=== PATIENT | female | born 1955 | race African-American/Black ===

== ENCOUNTER 2016-09-03 11:20 | Emergency (ER) | payer BC ==
[~2016-09-03] VITALS: Ht 149.9 cm; Wt 87.0 kg
[~2016-09-03 11:20] MED LIST: ALPR0.5T PO; AMLO-145 PO; DILT-8 PO; HYD25 PO; LEVA1.2527 NEB; LEVO200T6 PO; METO-448 PO; PRED20 PO; PRED20TA PO; WARF5TAB72 PO; WARF7.5T PO
[2016-09-03 11:23] VITALS: Ht 149.9 cm; Wt 87.0 kg
[2016-09-03] MEDS ORDERED: AMO500 PO (13:19)
[2016-09-03] MEDS ORDERED: PRED20TA PO (13:19)
--- NOTE | 2016-09-03 13:21 | ERD ---
ER Documentation Chief Complaint Date/Time DATE: 09/03/16 TIME: 13:20 Chief Complaint pt bib self with c/o sore throat x 2 days HPI Patient is a 60-year-old female who presents with sore throat for the past 2 days. She states when she swallows it feels like razor blades. She is tolerating oral intake. She denies fever. Denies any nausea or vomiting. She denies cough. She is taking over the counter medications at home without any relief. Pain is 8 out of 10 and worse with swallowing. ROS All systems reviewed and are negative except as per history of present illness. Medications Home Meds Active Scripts Prednisone* (Prednisone*) 20 Mg Tab, 40 MG PO DAILY for 5 Days, TAB Prov:SPRING MIMS PA-C 09/03/16 Amoxicillin* (Amoxicillin*) 500 Mg Cap, 500 MG PO BID for 7 Days, CAP Prov:SPRING MIMS PA-C 09/03/16 Levalbuterol Hcl* (Xopenex*) 1.25 Mg/3 Ml Vial.neb, 1.25 MG NEB Q4 Y for SHORTNESS OF BREATH, #30 EA Prov:ZURDO BYRD MD 05/16/16 Prednisone* (Prednisone*) 20 Mg Tab, 40 MG PO DAILY for 4 Days, TAB Prov:ZURDO BYRD MD 05/16/16 Prednisone (Prednisone) 20 Mg Tab, 20 MG PO DAILY for 4 Days, TAB Prov:DEVAUGHN ADAMS NP 09/06/15 Levalbuterol Hcl* (Xopenex*) 1.25 Mg/3 Ml Vial.neb, 1.25 MG NEB Q4 Y for SHORTNESS OF BREATH, #30 EA Prov:DEVAUGHN ADAMS NP 09/06/15 Diltiazem Hcl (Cardozem Cd) 240 Mg Capsr, 240 MG PO DAILY, #30 CAP Prov:HERBER LEWIS MD 08/29/15 Alprazolam* (Xanax*) 0.5 Mg Tab, 0.5 MG PO TID, #12 TAB Prov:MACKENZIE WEBB MD 08/26/15 Reported Medications Amlodipine Besylate* (Amlodipine Besylate*) 5 Mg Tablet, 5 MG PO DAILY, #30 TAB 08/26/15 Warfarin Sodium* (Coumadin*) 7.5 Mg Tablet, 7.5 MG PO MONDAY & MONDAY, TAB GIVE 7.5 MG EVERY MONDAY AND MONDAY 11/01/14 Warfarin Sodium* (Coumadin*) 5 Mg Tablet, 5 MG PO DAILY EXCEPT MON&MON, TAB GIVE 5 MG MONDAY, MONDAY, MONDAY, MONDAY, AND MONDAY 11/01/14 Metoprolol Tartrate* (Lopressor*) 25 Mg Tab, 25 MG PO DAILY, TAB 11/01/14 Levothyroxine Sodium* (Levothyroxine Sodium*) 200 Mcg Tablet, 200 MCG PO AC BREAKFAST, TAB 11/01/14 Hydrochlorothiazide* (Hydrochlorothiazide*) 25 Mg Tab, 25 MG PO DAILY, TAB 11/01/14 Allergies Allergies: Coded Allergies: Pentazocine Lactate (Verified Allergy, Unknown, HALLUCINATIONS, 08/28/15) PMhx/Soc History of Surgery: Yes (CABG) Anesthesia Reaction: No Hx Neurological Disorder: No Hx Respiratory Disorders: Yes (PE (1975)) Hx Cardiac Disorders: Yes (A FIB ) Hx Psychiatric Problems: No Hx Miscellaneous Medical Probl: Yes (asthma, PE,Greenfilter) Hx Alcohol Use: Yes Hx Substance Use: No Hx Tobacco Use: No FmHx Family History: No diabetes Physical Exam Vitals Vital Signs Date Time Temp Pulse Resp B/P Pulse Ox O2 Delivery O2 Flow Rate FiO2 09/03/16 11:23 98.2 65 18 137/68 98 Physical Exam General: well developed, well nourished, alert, nontoxic, no distress Head: normocephalic, atraumatic Eyes: PERRL, normal conjunctiva Neck: Supple, nontender, no lymphadenopathy, no midline tenderness Oropharynx: Mild bilateral tonsilar erythema and edema, uvula midline, no exudates, no kissing tonsils, no drooling Respiratory: Clear to auscaultation bilaterally, speaks in full sentences, no use of accesory muscles or labored breathing, no rales, ronchi, or wheezing Cardiovascular: RRR, No murmurs Procedures/MDM 60-year-old female nondiabetic presents with pharyngitis. Her vital signs are within normal limits and she is well-appearing in no distress. Low concern for peritonsillar abscess at this time. She is discharged with amoxicillin and a short course of prednisone. Recommended this patient follow up with her primary care doctor within 48 hours or return to the emergency room for any worsening of symptoms. However this time I do believe there is suitable for outpatient management. I answered all their questions and they agreed with the plan and were discharged home. Departure Diagnosis: Primary Impression: Pharyngitis Condition: Stable Patient Instructions: Pharyngitis, Strep (Presumed) Additional Instructions: Call your primary care doctor TOMORROW for an appointment during the next 1-2 days.See the doctor sooner or return here if your condition worsens before your appointment time. SPRING MIMS PA-C Sep 03, 2016 13:21
== END 2016-09-03 14:00 | disposition home or self-care (01) ==
LOC: FTE 11:20
DX: J02.9 Acute pharyngitis, unspecified (principal); J45.909 Unspecified asthma, uncomplicated; Z79.01 Long term (current) use of anticoagulants; Z95.1 Presence of aortocoronary bypass graft
CPT/HCPCS: 99284

== ENCOUNTER 2016-09-24 10:36 | Emergency (ER) | payer BC ==
[~2016-09-24] VITALS: Ht 152.4 cm; Wt 87.8 kg
[~2016-09-24 10:36] MED LIST changes: +AMO500 PO
[2016-09-24 10:39] VITALS: Ht 152.4 cm; Wt 87.8 kg
[2016-09-24] MEDS ORDERED: NYST1000 PO (12:05)
--- NOTE | 2016-09-24 12:45 | ERD ---
ER Documentation Chief Complaint Date/Time DATE: 09/24/16 TIME: 12:41 Chief Complaint pt bib self with c/o sores inside mouth HPI This is a 60-year-old female presents to the ER stating that she has white spots on her lips and in her tongue. Patient is also complaining of sore throat which is described as razors in her throat. Patient was seen here on September 03 and states that she was given a course of antibiotics and steroids. Her primary care doctor told her to discontinue steroids however she did finish antibiotic course. Patient does take an inhaled steroid disc for asthma every day twice a day. Patient denies any chest pain or shortness of breath. She denies any fevers or chills. ROS 12 point review of systems was done, all negative except per HPI. Medications Home Meds Active Scripts Nystatin (Nystatin) 100,000 Unit/1 Ml Oral.susp, 5 ML PO QID for 7 Days, #60 ML Prov:RUPINDER BOWERS 09/24/16 Prednisone* (Prednisone*) 20 Mg Tab, 40 MG PO DAILY for 5 Days, TAB Prov:SPRING MIMS PA-C 09/03/16 Amoxicillin* (Amoxicillin*) 500 Mg Cap, 500 MG PO BID for 7 Days, CAP Prov:SPRING MIMS PA-C 09/03/16 Levalbuterol Hcl* (Xopenex*) 1.25 Mg/3 Ml Vial.neb, 1.25 MG NEB Q4 Y for SHORTNESS OF BREATH, #30 EA Prov:ZURDO BYRD MD 05/16/16 Prednisone* (Prednisone*) 20 Mg Tab, 40 MG PO DAILY for 4 Days, TAB Prov:ZURDO BYRD MD 05/16/16 Prednisone (Prednisone) 20 Mg Tab, 20 MG PO DAILY for 4 Days, TAB Prov:DEVAUGHN ADAMS NP 09/06/15 Levalbuterol Hcl* (Xopenex*) 1.25 Mg/3 Ml Vial.neb, 1.25 MG NEB Q4 Y for SHORTNESS OF BREATH, #30 EA Prov:DEVAUGHN ADAMS NP 09/06/15 Diltiazem Hcl (Cardozem Cd) 240 Mg Capsr, 240 MG PO DAILY, #30 CAP Prov:HERBER LEWIS MD 08/29/15 Alprazolam* (Xanax*) 0.5 Mg Tab, 0.5 MG PO TID, #12 TAB Prov:MACKENZIE WEBB MD 08/26/15 Reported Medications Amlodipine Besylate* (Amlodipine Besylate*) 5 Mg Tablet, 5 MG PO DAILY, #30 TAB 08/26/15 Warfarin Sodium* (Coumadin*) 7.5 Mg Tablet, 7.5 MG PO MONDAY & MONDAY, TAB GIVE 7.5 MG EVERY MONDAY AND MONDAY 11/01/14 Warfarin Sodium* (Coumadin*) 5 Mg Tablet, 5 MG PO DAILY EXCEPT MON&MON, TAB GIVE 5 MG MONDAY, MONDAY, MONDAY, MONDAY, AND MONDAY 11/01/14 Metoprolol Tartrate* (Lopressor*) 25 Mg Tab, 25 MG PO DAILY, TAB 11/01/14 Levothyroxine Sodium* (Levothyroxine Sodium*) 200 Mcg Tablet, 200 MCG PO AC BREAKFAST, TAB 11/01/14 Hydrochlorothiazide* (Hydrochlorothiazide*) 25 Mg Tab, 25 MG PO DAILY, TAB 11/01/14 Allergies Allergies: Coded Allergies: Pentazocine Lactate (Verified Allergy, Unknown, HALLUCINATIONS, 09/24/16) PMhx/Soc History of Surgery: Yes (CABG, THYROIDECTOMY 2007, HYSTERECTOMY) Anesthesia Reaction: No Hx Neurological Disorder: No Hx Respiratory Disorders: Yes (PE (1974)) Hx Cardiac Disorders: Yes (A FIB, PULMONARY HTN) Hx Psychiatric Problems: No Hx Miscellaneous Medical Probl: Yes (asthma, PE,Greenfilter) Hx Alcohol Use: Yes (SOCIALLY ) Hx Substance Use: No Hx Tobacco Use: No Smoking Status: Former smoker Physical Exam Vitals Vital Signs Date Time Temp Pulse Resp B/P Pulse Ox O2 Delivery O2 Flow Rate FiO2 09/24/16 10:39 97.8 51 20 129/72 100 Physical Exam GENERAL: The patient is well-developed, well-nourished, in no acute distress. HEENT: Atraumatic. Oral thrush in mouth, there is some vesicular lesions in the upper palate. No tonsillar exudate, no tonsillar erythema. No kissing tonsils. No uvular deviation. RESPIRATORY: Clear to auscultation bilaterally. There are no rales, wheezes or rhonchi. HEART: Regular rate and rhythm. No murmurs, clicks, rubs or gallops. NEUROLOGIC: Alert and oriented. SKIN: There is no rash. The skin is warm and dry. Procedures/MDM This is a 60-year-old female presents to the ER with sores inside of her mouth and white spots in her mouth. Patient does appear to have oral thrush. Patient does use inhaled steroids for her asthma daily twice a day. This may be the cause for thrush. Patient does not rinse her mouth after using these inhalers. I advised patient to start rinsing her mouth after using inhalers. Patient did have some vesicular lesions which may be viral in etiology. Patient will be sent home with Magic mouthwash with nystatin. Patient is afebrile and well-appearing. Suspicion for peritonsillar or retropharyngeal abscess is low. There is no uvular deviation patient does not have a muffled voice and she does not have any difficulty in breathing. Patient is to follow- up with her primary care doctor within 1-2 days or return to ER sooner if symptoms worsen. My medical decision making was shared with the patient she understands and agrees with plan. Departure Diagnosis: Primary Impression: Oral thrush Condition: Stable Patient Instructions: Oral Thrush Additional Instructions: Call your primary care doctor TOMORROW for an appointment during the next 1-2 days.See the doctor sooner or return here if your condition worsens before your appointment time. RUPINDER BOWERS Sep 24, 2016 12:45
== END 2016-09-24 12:11 | disposition home or self-care (01) ==
LOC: FTE 10:36
DX: B37.0 Candidal stomatitis (principal); J45.909 Unspecified asthma, uncomplicated; Z87.891 Personal history of nicotine dependence; Z79.01 Long term (current) use of anticoagulants; Z95.1 Presence of aortocoronary bypass graft
CPT/HCPCS: 99283

== ENCOUNTER 2017-01-04 05:27 | Emergency (ER) | payer BC ==
[~2017-01-04] VITALS: Ht 149.9 cm; Wt 86.5 kg
[~2017-01-04 05:27] MED LIST changes: +NYST1000 PO; -PRED20 PO
[2017-01-04 05:30] VITALS: Ht 149.9 cm; Wt 86.5 kg
[2017-01-04] MEDS ORDERED: SOD CHLORIDE 0.9% 500 ML IV STA (05:57)
--- NOTE | 2017-01-04 06:24 | ERA ---
ER Documentation Chief Complaint Date/Time DATE: 01/04/17 TIME: 06:23 Chief Complaint Rapid Heart Rate and HTN HPI 61-year-old woman with a history of tachydysrhythmia presents with palpitations this morning, she states her last episode was about a year ago. She states for shortness of breath last night she used albuterol pump. She denies calf or leg swelling, no cough, no fevers or chills, no complaints of chest pain. Furthermore patient did not use her diltiazem this morning, she normally uses diltiazem for tachycardia. ROS All systems reviewed and are negative except as per history of present illness. Medications Home Meds Active Scripts Diltiazem Hcl (Cardozem Cd) 240 Mg Capsr, 240 MG PO DAILY, #30 CAP Prov:HERBER LEWIS MD 08/29/15 Reported Medications Metoprolol Tartrate* (Lopressor*) 25 Mg Tab, 25 MG PO , #60 TAB 01/04/17 Metoprolol Tartrate* (Lopressor*) 25 Mg Tab, 12.5 MG PO SUN,TUE,UR,SAT, #60 TAB 01/04/17 Levothyroxine Sodium* (Levoxyl*) 100 Mcg Tablet, 100 MCG PO BEFORE BREAKFAST, # 30 TAB 01/04/17 Warfarin Sodium* (Coumadin*) 7.5 Mg Tablet, 7.5 MG PO MONDAY & MONDAY, TAB GIVE 7.5 MG EVERY MONDAY AND MONDAY 11/01/14 Warfarin Sodium* (Coumadin*) 5 Mg Tablet, 5 MG PO DAILY EXCEPT MON&MON, TAB GIVE 5 MG MONDAY, MONDAY, MONDAY, MONDAY, AND MONDAY 11/01/14 Levothyroxine Sodium* (Levothyroxine Sodium*) 200 Mcg Tablet, 200 MCG PO AC BREAKFAST, TAB 11/01/14 Hydrochlorothiazide* (Hydrochlorothiazide*) 25 Mg Tab, 25 MG PO DAILY, TAB 11/01/14 Discontinued Reported Medications Amlodipine Besylate* (Amlodipine Besylate*) 5 Mg Tablet, 5 MG PO DAILY, #30 TAB 08/26/15 Metoprolol Tartrate* (Lopressor*) 25 Mg Tab, 25 MG PO DAILY, TAB 11/01/14 Discontinued Scripts Nystatin (Nystatin) 100,000 Unit/1 Ml Oral.susp, 5 ML PO QID for 7 Days, #60 ML Prov:RUPINDER BOWERS 09/24/16 Prednisone* (Prednisone*) 20 Mg Tab, 40 MG PO DAILY for 5 Days, TAB Prov:SPRING MIMS PA-C 09/03/16 Amoxicillin* (Amoxicillin*) 500 Mg Cap, 500 MG PO BID for 7 Days, CAP Prov:SPRING MIMS PA-C 09/03/16 Levalbuterol Hcl* (Xopenex*) 1.25 Mg/3 Ml Vial.neb, 1.25 MG NEB Q4 Y for SHORTNESS OF BREATH, #30 EA Prov:ZURDO BYRD MD 05/16/16 Prednisone* (Prednisone*) 20 Mg Tab, 40 MG PO DAILY for 4 Days, TAB Prov:ZURDO BYRD MD 05/16/16 Prednisone (Prednisone) 20 Mg Tab, 20 MG PO DAILY for 4 Days, TAB Prov:DEVAUGHN ADAMS NP 09/06/15 Levalbuterol Hcl* (Xopenex*) 1.25 Mg/3 Ml Vial.neb, 1.25 MG NEB Q4 Y for SHORTNESS OF BREATH, #30 EA Prov:DEVAUGHN ADAMS NP 09/06/15 Alprazolam* (Xanax*) 0.5 Mg Tab, 0.5 MG PO TID, #12 TAB Prov:MACKENZIE WEBB MD 08/26/15 Allergies Allergies: Coded Allergies: Pentazocine Lactate (Verified Allergy, Unknown, HALLUCINATIONS, 01/04/17) PMhx/Soc Atrial flutter status post ablation, atrial tachydysrhythmia, obesity, hypertension, 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, hypercoagulable state, DVTs, inferior vena cava filter placement, total abdominal hysterectomy, obstructive sleep apnea, pulmonary hypertension, hypertension, previous pulmonary embolisms History of Surgery: Yes (CABG, THYROIDECTOMY 2007, HYSTERECTOMY) Anesthesia Reaction: No Hx Neurological Disorder: No Hx Respiratory Disorders: Yes (PE (1975)) Hx Cardiac Disorders: Yes (A FIB, PULMONARY HTN) Hx Psychiatric Problems: No Hx Miscellaneous Medical Probl: Yes (asthma, PE,Greenfilter) Hx Alcohol Use: Yes (SOCIALLY ) Hx Substance Use: No Hx Tobacco Use: No FmHx Family History: No diabetes Physical Exam Vitals Vital Signs Date Time Temp Pulse Resp B/P Pulse Ox O2 Delivery O2 Flow Rate FiO2 01/04/17 07:56 98.6 66 18 119/56 100 Room Air 01/04/17 06:55 Nasal Cannula 2 01/04/17 05:30 97.8 120 24 173/101 98 Physical Exam GENERAL: Well-developed, well-nourished, well-hydrated, in no apparent distress , looks nontoxic in appearance HEENT: Moist mucous membranes, pink conjunctiva, no cervical spine tenderness or step-off deformities, no goiter, no jaundice or icterus, extraocular movements intact without pain. No submandibular induration, and no pharyngeal erythema NEURO: Alert and oriented 3, cranial nerves II through XII intact bilaterally, pupils equal round reactive to light, no focal deficits or facial asymmetry, sensation intact distally Strength 5/5 in upper and lower extremities bilaterally CARDIAC: Regular rate and rhythm, no murmurs rubs or gallops LUNGS: Clear bilaterally no wheezing crackles or stridor ABDOMEN: Soft nontender, no guarding, no rigidity, no rebound, no psoas sign no obturator sign. Normoactive bowel sounds SKIN: Warm and dry to touch, no abrasions, contusions, or hematomas, no lacerations, no ecchymosis, no target lesions, and without ulcers EXTREMITIES: No clubbing cyanosis or edema, calves are bilaterally symmetrical, no Homans sign, no popliteal cord sign. Distal pulses equal and bilateral PSYCH: Normal affect without agitation or irritability Result Diagram: 01/04/17 0618 01/04/17 0618 Results 24 hrs Laboratory Tests Test 01/04/17 06:18 White Blood Count 12.110^3/ul Red Blood Count 5.1910^6/ul Hemoglobin 14.1g/dl Hematocrit 44.8% Mean Corpuscular Volume 86.3fl Mean Corpuscular Hemoglobin 27.2pg Mean Corpuscular Hemoglobin Concent 31.5g/dl Red Cell Distribution Width 17.4% Platelet Count 78179^3/UL Mean Platelet Volume 10.3fl Neutrophils % 70.0% Lymphocytes % 18.4% Monocytes % 10.6% Eosinophils % 0.2% Basophils % 0.2% Nucleated Red Blood Cells % 0.0/100WBC Neutrophils # 8.510^3/ul Lymphocytes # 2.210^3/ul Monocytes # 1.310^3/ul Eosinophils # 0.010^3/ul Basophils # 0.010^3/ul Nucleated Red Blood Cells # 0.010^3/ul Prothrombin Time 25.6Sec Prothrombin Time Ratio 2.0 INR International Normalized Ratio 2.30 Activated Partial Thromboplast Time 41.5Sec Sodium Level 148mmol/L Potassium Level 3.7mmol/L Chloride Level 105mmol/L Carbon Dioxide Level 31mmol/L Anion Gap 16 Blood Urea Nitrogen 17mg/dl Creatinine 0.96mg/dl Glucose Level 112mg/dl Calcium Level 9.2mg/dl Total Bilirubin 0.3mg/dl Direct Bilirubin 0.00mg/dl Indirect Bilirubin 0.3mg/dl Aspartate Amino Transf (AST/SGOT) 38IU/L Alanine Aminotransferase (ALT/SGPT) 49IU/L Alkaline Phosphatase 126IU/L Troponin I < 0.012ng/ml B-Type Natriuretic Peptide 878PG/ML Total Protein 9.3g/dl Albumin 5.3g/dl Globulin 4.00g/dl Albumin/Globulin Ratio 1.32 Current Medications Medications (Trade) Dose Ordered Sig/Rod Route PRN Reason Start Time Stop Time Status Last Admin Dose Admin Sodium Chloride (NS) 500 ml @ 500 mls/hr Q1H STAT IV 01/04/17 05:57 01/04/17 06:56 DC 01/04/17 06:53 Diltiazem HCl (Cardizem) 60 mg ONCE ONCE PO 01/04/17 07:00 01/04/17 07:03 DC 01/04/17 07:51 Procedures/[facility] IV line was established patient was placed on monitoring manager rhythm strip revealed a narrow complex tachycardia at 140 bpm. Patient was afebrile. Patient received 500 cc normal saline intravenously, and she did not use her diltiazem this morning so she was given 60 mg diltiazem p.o. for tachydysrhythmia. EKG #1 performed, read by me revealed a narrow complex atrial tachycardia at 120 bpm, normal axis, narrow QRS complex, no concerning ST elevations or depressions noted. Shortly after therapy in about an hour after the first 1 EKG #2 was performed, read by me revealed an atrial flutter with variable block with rate controlled a 79 bpm, normal axis, narrow QRS complex, no concerning ST elevations or depressions noted. Critical Care: Time: 40 minutes, this was time separate from other procedures. Treatments/Evaluations: Close monitoring and treatment of unstable vital signs, cardiorespiratory, and neurologic status, while maintaining tight balance of fluid, respiratory, and cardiac interventions. CBC and electrolytes were unremarkable, liver function tests were normal, troponin was negative. Chest X-ray 1V Interpreted by me: Soft Tissue: No acute abnormalities Bones: No acute abnormalities Mediastinum/Cardiac Silhouette/Lungs: No acute abnormalities Differential diagnoses considered, included but not limited to acute coronary syndrome, pulmonary embolism, aortic dissection, abdominal aortic aneurysm, sepsis, stroke, meningitis, encephalitis, pneumonia, appendicitis, cholecystitis , bowel obstruction, pyelonephritis, nephrolithiasis, cystitis, as well as metabolic, hematologic, and electrolyte abnormalities. As well as abscess, cellulitis, fractures, and dislocations. Patient feels much better at this time, and vital signs are normal, symptoms have improved. I did give strict instructions to return to the ED if symptoms continue or worsen, patient will otherwise follow-up with primary care physician. Patient understood instructions and agreed to plan. Disclaimer: Inadvertent spelling or grammatical errors are likely due to EHR/ dictation software use and do not reflect on the overall quality of patient care. Departure Diagnosis: Primary Impression: Pulmonary artery hypertension Additional Impressions: Hypertension Qualified Code: I10 - Essential hypertension Tachyarrhythmia Palpitation Condition: Good MACKENZIE WEBB MD Jan 04, 2017 06:24
[2017-01-04 06:36] LABS: ADD SCAN DIFF NO
--- NOTE | 2017-01-04 06:39 | RADRPT ---
PROCEDURE: Chest. CLINICAL INDICATION: Chest pain. TECHNIQUE: Single frontal view of the chest was obtained. COMPARISON: 05/16/2016. FINDINGS: Mediasternotomy wires are present. There are multiple cerclage wires fixating left-sided ribs. Thy roidectomy clips are present. The cardiac silhouette is enlarged. The aortic arch is calcified. T here is mild left basilar scarring with elevation of the left hemidiaphragm. There is no focal cons olidation, vascular congestion or pleural effusion. There is no pneumothorax. IMPRESSION: No evidence for active cardiopulmonary disease. Mild left basilar scarring with elevation of the left hemidiaphragm, unchanged. Cardiomegaly and aortic atherosclerosis. .Brando Kaufman MD, Date Time Electronically viewed and signed by .Brando Kaufman MD, MD on 01/04/2017 06:38 .T/
[2017-01-04 06:47] LABS: BASOPHILS % 0.2 % (0.0-2.0); EOSINOPHILS % 0.2 % (0.0-7.0); HEMATOCRIT 44.8 % (37.0-47.0); HEMOGLOBIN 14.1 g/dl (12.0-16.0); LYMPHOCYTES # 2.2 10^3/ul (0.8-2.9); LYMPHOCYTES % 18.4 % (15.0-51.0); MEAN CORPUSCULAR HEMOGLOBIN 27.2 pg (29.0-33.0); MEAN CORPUSCULAR HGB CONC 31.5 g/dl (32.0-37.0); MEAN CORPUSCULAR VOLUME 86.3 fl (82.0-101.0); MEAN PLATELET VOLUME 10.3 fl (7.4-10.4); MONOCYTE # 1.3 10^3/ul (0.3-0.9); MONOCYTES % 10.6 % (0.0-11.0); NEUTROPHIL # 8.5 10^3/ul (1.6-7.5); PLATELET COUNT 317 10^3/UL (140-415); RED BLOOD COUNT 5.19 10^6/ul (4.20-5.40); RED CELL DISTRIBUTION WIDTH 17.4 % (11.5-14.5); WHITE BLOOD COUNT 12.1 10^3/ul (4.8-10.8)
[2017-01-04] MEDS ORDERED: DILTIAZEM 60 MG TAB PO ONE (07:00)
[2017-01-04] MEDS ORDERED: LEVO100T82 PO (07:06)
[2017-01-04] MEDS ORDERED: METO-448 PO ×2 (07:08)
[2017-01-04 07:17] LABS: ALANINE AMINOTRANSFERASE 49 IU/L (13-69); ALBUMIN 5.3 g/dl (3.3-4.9); ALBUMIN/GLOBULIN RATIO 1.32; ALKALINE PHOSPHATASE 126 IU/L (42-121); ANION GAP 16 (8-16); ASPARTATE AMINO TRANSFERASE 38 IU/L (15-46); BILIRUBIN,INDIRECT 0.3 mg/dl (0-1.1); BILIRUBIN,TOTAL 0.3 mg/dl (0.2-1.3); BLOOD UREA NITROGEN 17 mg/dl (7-20); CALCIUM 9.2 mg/dl (8.4-10.2); CARBON DIOXIDE 31 mmol/L (21-31); CHLORIDE 105 mmol/L (97-110); CREATININE 0.96 mg/dl (0.44-1.00); GLUCOSE 112 mg/dl (70-220); POTASSIUM 3.7 mmol/L (3.5-5.1); SODIUM 148 mmol/L (135-144); TOTAL PROTEIN 9.3 g/dl (6.1-8.1)
[2017-01-04 07:23] LABS: INR 2.3; PROTIME 25.6 Sec (12.2-14.2)
[2017-01-04 07:24] LABS: PARTIAL THROMBOPLASTIN TIME 41.5 Sec (25.0-35.0)
[2017-01-04 07:30] LABS: B-TYPE NATRIURETIC PEPTIDE 878 PG/ML (0-125)
[2017-01-04 07:34] LABS: TROPONIN-I < 0.012 ng/ml (0.00-0.12)
[2017-01-04 07:56] VITALS: BP 119/56; PULSE 66; RESP 18; TEMP 98.6
== END 2017-01-04 07:58 | disposition home or self-care (01) ==
LOC: E/R 05:27
DX: I27.2 Other secondary pulmonary hypertension (principal); R00.0 Tachycardia, unspecified; R00.2 Palpitations; J45.909 Unspecified asthma, uncomplicated; E66.9 Obesity, unspecified; Z68.38 Body mass index [BMI] 38.0-38.9, adult; Z95.1 Presence of aortocoronary bypass graft; Z85.89 Personal history of malignant neoplasm of other organs and systems; Z79.01 Long term (current) use of anticoagulants
CPT/HCPCS: 36415; 71010; 80053; 83880; 84484; 85025; 85610; 85730; 93005; 99291; J7040

== ENCOUNTER 2017-01-15 08:27 | Emergency (ER) | payer BC ==
[~2017-01-15] VITALS: Ht 152.4 cm; Wt 87.5 kg
[~2017-01-15 08:27] MED LIST changes: -ALPR0.5T PO; -AMLO-145 PO; -AMO500 PO; -LEVA1.2527 NEB; +LEVO100T82 PO; -NYST1000 PO; -PRED20TA PO
[2017-01-15 08:30] VITALS: Ht 152.4 cm; Wt 87.5 kg
[2017-01-15 09:12] LABS: ADD SCAN DIFF NO
[2017-01-15 09:14] LABS: BASOPHILS % 0.4 % (0.0-2.0); EOSINOPHILS % 0.5 % (0.0-7.0); HEMATOCRIT 37.5 % (37.0-47.0); HEMOGLOBIN 11.9 g/dl (12.0-16.0); LYMPHOCYTES # 1.2 10^3/ul (0.8-2.9); LYMPHOCYTES % 20.8 % (15.0-51.0); MEAN CORPUSCULAR HEMOGLOBIN 27.7 pg (29.0-33.0); MEAN CORPUSCULAR HGB CONC 31.7 g/dl (32.0-37.0); MEAN CORPUSCULAR VOLUME 87.4 fl (82.0-101.0); MEAN PLATELET VOLUME 9.5 fl (7.4-10.4); MONOCYTE # 0.5 10^3/ul (0.3-0.9); NEUTROPHIL # 3.9 10^3/ul (1.6-7.5); NEUTROPHILS % 69.1 % (39.0-77.0); PLATELET COUNT 225 10^3/UL (140-415); RED BLOOD COUNT 4.29 10^6/ul (4.20-5.40); RED CELL DISTRIBUTION WIDTH 16.9 % (11.5-14.5); WHITE BLOOD COUNT 5.6 10^3/ul (4.8-10.8)
--- NOTE | 2017-01-15 09:15 | RADRPT ---
PROCEDURE: XR Chest. CLINICAL INDICATION: Shortness of breath TECHNIQUE: Chest AP portable. COMPARISON: 01/04/2017 FINDINGS: Sternotomy. Left sided cerclage wires fixing left anterior lateral ribs. Thyroidectomy. The mediastinal structures are unremarkable. There is calcification of the thoracic aorta (consiste nt with atherosclerosis). There is mild cardiomegaly. The pulmonary vascularity is normal. The ciara ng du are unremarkable. No consolidation is identified. The pleural spaces are unremarkable. The osseous structures are unremarkable. IMPRESSION: Calcification of the thoracic aorta (consistent with atherosclerosis) Mild cardiomegaly No active intrathoracic disease RPTAT: [facility] .Edwar Jacobo MD, MD Date Time Electronically viewed and signed by .Edwar Jacobo MD, on 01/15/2017 09:15 .B/
[2017-01-15 09:33] LABS: INR 1.52; PROTIME 18.4 Sec (12.2-14.2); PT RATIO 1.4
[2017-01-15 09:36] LABS: CALCIUM 8.7 mg/dl (8.4-10.2); CREATININE 1.11 mg/dl (0.44-1.00); POTASSIUM 4.1 mmol/L (3.5-5.1)
[2017-01-15 09:48] LABS: TROPONIN-I 0.013 ng/ml (0.00-0.12)
[2017-01-15 10:42] LABS: AADO2 Arterial 47.9 mmHg (7.0-24.0); Allen Test ACCEPTAB; Arterial Base Excess -1.8 mmol/L (-3.0-3); Arterial COHb 0.3 % (0.0-3.0); Arterial Fraction of Oxyhgb 97.4 % (93.0-99.0); Arterial HCO3 20.4 mmol/L (22.0-26.0); Arterial MetHb 0.2 % (0.0-1.5); Arterial Total Hemglobin 14.5 g/dl (12.0-18.0); MODE NASAL CANNULA
[2017-01-15] MEDS ORDERED: METO-429 PO (11:11)
[2017-01-15] MEDS ORDERED: IOHEXOL 100 ML ONE (11:11)
[2017-01-15] MEDS ORDERED: WARF5TAB72 PO (11:11)
[2017-01-15] MEDS ORDERED: SOD CHLORIDE 0.9% 100 ML ONE (11:11)
[2017-01-15] MEDS ORDERED: WARF7.5T PO (11:11)
--- NOTE | 2017-01-15 11:44 | RADRPT ---
PROCEDURE: CT Chest Angiogram with contrast. CLINICAL INDICATION: Shortness of breath TECHNIQUE: CT scan of the chest with contrast was performed on a multidetector high-resolution CT scanner. The patient was scanned following the uncomplicated intravenous administration of 100 cc o f Isovue 300 contrast. Coronal and sagittal reformatted images were obtained from the axial source images. Additional 3D volumetric renderings were created. Images were reviewed on a [employer] PACS workstation. The total exam CTDI equals 7/7/92/19 mGy and the total exam DLP equals 751 mGy-c m. One or more of the following dose reduction techniques were used: Automated exposure control, Adj ustment of the mA and/or kV according to patient size, and/or use of iterative reconstruction techni que. COMPARISON: Chest x-ray earlier today; CT chest angiogram 08/26/2015 FINDINGS: Sternotomy wires and left thoracotomy changes. Technically adequate exam for the evaluation of the pulmonary arteries to the segmental level. Tiny filling defect within an apicoposterior segmental branch of the left upper lobe (series 3 image 80) is unchanged from prior. No acute intraluminal filling defects are seen. Enlarged pulmonary trunk a nd bilateral main pulmonary arteries. Ascending aortic ectasia measuring up to 3.8 cm. Bibasilar atelectasis with subpleural cystic changes at the left lung base. Small hiatal hernia. C ardiomegaly. No mediastinal or hilar lymphadenopathy. No pleural or pericardial effusion. The visualized upper abdomen is grossly unremarkable. IMPRESSION: No evidence of acute pulmonary embolus. Tiny chronic pulmonary embolus within the apicoposterior segmental branch of the left upper lobe is unchanged from 08/26/2015. Enlarged pulmonary trunk and bilateral main pulmonary arteries can be seen with pulmonary arterial h ypertension in the appropriate setting. Ascending aortic ectasia. Cardiomegaly. RPTAT: AA .Cahd Esteban MD, MD Date Time Electronically viewed and signed by .Chad Esteban MD, on 01/15/2017 11:44 .T/
[2017-01-15] MEDS ORDERED: ALBUTEROL 0.083% (NEB) 2.5 MG/3 ML AMP NEB STA (11:56)
[2017-01-15] MEDS ORDERED: IPRATROPIUM (NEB) 0.5 MG/2.5 ML AMP NEB STA (11:56)
[2017-01-15] MEDS ORDERED: ENOXAPARIN 100 MG/ML SYG SC ONE (12:30)
[2017-01-15 13:22] VITALS: BP 122/78; PULSE 46; RESP 16
--- NOTE | 2017-01-15 16:36 | ERD ---
ER Documentation Chief Complaint Date/Time DATE: 01/15/17 TIME: 16:30 Chief Complaint Complains of SOB HPI 61-year-old female presenting with shortness of breath for the past 2 days. He has a history of pulmonary hypertension, DVT, pulmonary embolism on Coumadin, COPD, and atrial fibrillation/A flutter. She was recently seen in the ED about 10 days ago and diagnosed with recurrent a flutter. Her metoprolol dose was increased by her tree inspector recently. She states she is short of breath, worse with exertion, but denies any chest pain, cough, phlegm, fever, chills. She is taking her Coumadin regularly. She was recently seen for an INR check and her INR was subtherapeutic, so her Coumadin dose was increased. She also notes that she is not using her CPAP machine as it is broken and she is unable to get an appointment with her stereo equipment repairer until the end of January. ROS All systems reviewed and are negative except as per history of present illness. Medications Home Meds Reported Medications Warfarin Sodium* (Coumadin*) 7.5 Mg Tablet, 7.5 MG PO 3 times a week for on Monday,Mon,Monday., TAB 01/15/17 Warfarin Sodium* (Coumadin*) 5 Mg Tablet, 5 MG PO 4 times a week for on , ,Mon,Monday., TAB 01/15/17 Metoprolol Tartrate* (Lopressor*) 50 Mg Tab, 50 MG PO DAILY, #60 TAB 01/15/17 Levothyroxine Sodium* (Levoxyl*) 100 Mcg Tablet, 100 MCG PO BEFORE BREAKFAST, # 30 TAB 01/04/17 Hydrochlorothiazide* (Hydrochlorothiazide*) 25 Mg Tab, 25 MG PO DAILY, TAB 11/01/14 Discontinued Reported Medications Metoprolol Tartrate* (Lopressor*) 25 Mg Tab, 25 MG PO , #60 TAB 01/04/17 Metoprolol Tartrate* (Lopressor*) 25 Mg Tab, 12.5 MG PO MON,MON,,MON, #60 TAB 01/04/17 Warfarin Sodium* (Coumadin*) 7.5 Mg Tablet, 7.5 MG PO MONDAY & MONDAY, TAB GIVE 7.5 MG EVERY MONDAY AND MONDAY 11/01/14 Warfarin Sodium* (Coumadin*) 5 Mg Tablet, 5 MG PO DAILY EXCEPT MON&FRI, TAB GIVE 5 MG MONDAY, MONDAY, MONDAY, MONDAY, AND MONDAY 11/01/14 Levothyroxine Sodium* (Levothyroxine Sodium*) 200 Mcg Tablet, 200 MCG PO AC BREAKFAST, TAB 11/01/14 Discontinued Scripts Diltiazem Hcl (Cardozem Cd) 240 Mg Capsr, 240 MG PO DAILY, #30 CAP Prov:HERBER LEWIS MD 08/29/15 Allergies Allergies: Coded Allergies: Pentazocine Lactate (Verified Allergy, Unknown, HALLUCINATIONS, 01/15/17) PMhx/Soc History of Surgery: Yes (CABG, THYROIDECTOMY 2006, HYSTERECTOMY) Anesthesia Reaction: No Hx Neurological Disorder: No Hx Respiratory Disorders: Yes (PE (1974)) Hx Cardiac Disorders: Yes (A FIB, PULMONARY HTN) Hx Psychiatric Problems: No Hx Miscellaneous Medical Probl: Yes (asthma, PE,Greenfilter) Hx Alcohol Use: Yes (SOCIALLY ) Hx Substance Use: No Hx Tobacco Use: No Smoking Status: Never smoker FmHx Family History: No diabetes Physical Exam Vitals Vital Signs Date Time Temp Pulse Resp B/P Pulse Ox O2 Delivery O2 Flow Rate FiO2 01/15/17 13:22 46 16 122/78 96 Room Air 01/15/17 12:09 42 18 97 21 01/15/17 11:00 42 15 132/85 98 Nasal Cannula 3.0 01/15/17 10:00 42 19 129/83 98 Nasal Cannula 3.0 01/15/17 08:55 Nasal Cannula 3 01/15/17 08:30 98.3 48 20 161/73 94 Physical Exam Const: Well-appearing, no significant distress, nontoxic Head: Atraumatic Eyes: Normal Conjunctiva ENT: Normal External Ears, Nose and Mouth. Neck: Full range of motion..~ No meningismus. Resp: Clear to auscultation bilaterally, no wheezing, rales, rhonchi Cardio: Bradycardic with irregular rhythm, no murmurs Abd: Soft, non tender, non distended. Normal bowel sounds Skin: No petechiae or rashes Back: No midline or flank tenderness Ext: No cyanosis. Chronic edema and venous stasis changes, not worse per patient. No calf tenderness. Neur: Awake and alert Psych: Normal Mood and Affect Result Diagram: 01/15/17 0906 01/15/17 0906 Results 24 hrs Laboratory Tests Test 01/15/17 09:06 01/15/17 09:47 White Blood Count 5.610^3/ul Red Blood Count 4.2910^6/ul Hemoglobin 11.9g/dl Hematocrit 37.5% Mean Corpuscular Volume 87.4fl Mean Corpuscular Hemoglobin 27.7pg Mean Corpuscular Hemoglobin Concent 31.7g/dl Red Cell Distribution Width 16.9% Platelet Count 86158^3/UL Mean Platelet Volume 9.5fl Neutrophils % 69.1% Lymphocytes % 20.8% Monocytes % 9.0% Eosinophils % 0.5% Basophils % 0.4% Nucleated Red Blood Cells % 0.0/100WBC Neutrophils # 3.910^3/ul Lymphocytes # 1.210^3/ul Monocytes # 0.510^3/ul Eosinophils # 0.010^3/ul Basophils # 0.010^3/ul Nucleated Red Blood Cells # 0.010^3/ul Prothrombin Time 18.4Sec Prothrombin Time Ratio 1.4 INR International Normalized Ratio 1.52 Activated Partial Thromboplast Time 36.0Sec Sodium Level 141mmol/L Potassium Level 4.1mmol/L Chloride Level 103mmol/L Carbon Dioxide Level 30mmol/L Anion Gap 12 Blood Urea Nitrogen 16mg/dl Creatinine 1.11mg/dl Glucose Level 124mg/dl Calcium Level 8.7mg/dl Troponin I 0.013ng/ml Blood Gas Specimen Source Blood arterial Arterial Blood Date Drawn 01/15/2017 10:26:51 AM Arterial Blood pH (Temp corrected) 7.474 Arterial Blood pCO2 (Temp correct) 28.4mmhg Arterial Blood pO2 (Temp corrected) 111.0mmHG Arterial Blood HCO3 20.4mmol/L Arterial Blood Base Excess -1.8mmol/L Arterial Blood Oxygen Saturation 97.9mmHG Valdemar Test ACCEPTAB Arterial Blood Gas Puncture Site Right Radial Arterial Blood Carboxyhemoglobin 0.3% Arterial Blood Methemoglobin 0.2% Blood Gas A-a O2 Differential 47.9mmHg Oxyhemoglobin Percent 97.4% Total Hemoglobin 14.5g/dl Blood Gas Temperature 37.0C Blood Gas Modality NASAL CANNULA FiO2 27.0% Blood Gas Notified Whom LS Blood Gas Notified Time 01/15/2017 10:41:16 AM Current Medications Medications (Trade) Dose Ordered Sig/Rod Route PRN Reason Start Time Stop Time Status Last Admin Dose Admin IV Flush 10 ml 10 ml STK-MED ONCE .ROUTE 01/15/17 11:11 01/15/17 11:12 DC Sodium Chloride 100 ml @ ud STK-MED ONCE .ROUTE 01/15/17 11:11 01/15/17 11:12 DC Iohexol (Omnipaque) 100 ml @ ud STK-MED ONCE .ROUTE 01/15/17 11:11 01/15/17 11:12 DC Albuterol (Proventil 0.083% (Neb)) 5 mg ONCE STAT NEB 01/15/17 11:56 01/15/17 11:58 DC 01/15/17 12:08 Ipratropium [place] (Atrovent 0.02% (Neb)) 0.5 mg ONCE STAT NEB 01/15/17 11:56 01/15/17 11:58 DC 01/15/17 12:07 Enoxaparin Sodium (Lovenox) 90 mg ONCE ONCE SC 01/15/17 12:30 01/15/17 12:31 DC 01/15/17 13:14 Procedures/MDM EKG: Rate/Rhythm: Atrial fibrillation with slow ventricular response QRS, ST, T-waves: Nonspecific T-wave abnormality, no changes consistent w/ acute ischemia Impression: No evidence of ischemia or arrhythmia Chest x-ray shows no acute abnormalities CTPA shows a pulmonary embolism that appears chronic, not worse than last CTPA. There is evidence of pulmonary hypertension Labs: No significant abnormalities other than mildly elevated creatinine Troponin within normal limits Blood gas consistent with respiratory alkalosis MDM Patient is presenting with dyspnea with no significant findings on exam. Vitals were notable for slight hypoxia on room air. This improved with oxygen. Her workup is not consistent with pneumonia, acute coronary syndrome, asthma exacerbation. Given her subtherapeutic INR today, CTPA was done to evaluate for worsening pulmonary embolism. It showed that her pulmonary embolism was chronic and not worse than her last imaging showed. I suspect her symptoms may be secondary to her pulmonary hypertension and obstructive sleep apnea, as she has not been using her CPAP machine. I did give her breathing treatment and she thinks that it might have helped. At this time the patient is stable and does not require admission to the hospital. However I recommended she see her primary care doctor tomorrow to see if her primary care doctor can help her with obtaining a new CPAP machine. She was instructed to use her albuterol at home as needed if it does help. A dose of Lovenox 90 mg subcutaneously was given here given her subtherapeutic INR. Return precautions were given. Patient was discharged in stable condition. Departure Diagnosis: Primary Impression: Dyspnea Dyspnea type: shortness of breath Qualified Code: R06.02 - Shortness of breath Additional Impressions: Atrial fibrillation with slow ventricular response Pulmonary hypertension Condition: Stable Patient Instructions: Pulmonary Hypertension, Dyspnea Additional Instructions: Your INR was not in the therapeutic range today. Follow-up with your primary care doctor tomorrow to discuss changing Coumadin dose temporarily and for recheck of your INR. Also follow-up with your stereo equipment repairer for a new CPAP machine. Return to the ER for any worsening symptoms. ROSMERY VALENZUELA MD Jan 15, 2017 16:36
== END 2017-01-15 13:23 | disposition home or self-care (01) ==
LOC: E/R 08:27
DX: R06.02 Shortness of breath (principal); R40.2252 Coma scale, best verbal response, oriented, at arrival to emergency department; I48.91 Unspecified atrial fibrillation; I27.2 Other secondary pulmonary hypertension; J45.909 Unspecified asthma, uncomplicated; R40.2362 Coma scale, best motor response, obeys commands, at arrival to emergency department; R40.2142 Coma scale, eyes open, spontaneous, at arrival to emergency department; Z79.01 Long term (current) use of anticoagulants; Z98.61 Coronary angioplasty status
CPT/HCPCS: 36415; 36600; 71010; 71275; 80048; 82803; 84484; 85025; 85610; 85730; 93005; 94664; 96372; 99285; J1650; Q9967

== ENCOUNTER 2017-07-14 23:36 | Emergency (ER) | payer BC ==
[~2017-07-14] VITALS: Ht 149.9 cm; Wt 98.0 kg
[~2017-07-14 23:36] MED LIST changes: -DILT-8 PO; -HYD25 PO; +HYDR25TA6 PO; -LEVO200T6 PO; +METO-429 PO; -METO-448 PO
[2017-07-14 23:53] VITALS: Ht 149.9 cm; Wt 98.0 kg
--- NOTE | 2017-07-15 01:36 | ERD ---
ER Documentation Chief Complaint Chief Complaint BIB SELF, CC:"MY TONGUE FEELS BIGGER, i THINK i'M HAVING AN ALLERGIC REACTI HPI This 61 yr old female present to ED for evaluation right submandibular swelling and upper gingival swelling, denies n/v/f/or chills, pt reports no change in voice or difficulty swallow pt reports that she has an appointment with, ENT and her dentist patient ROS All systems reviewed and are negative except as per history of present illness. Medications Home Meds Reported Medications Warfarin Sodium* (Coumadin*) 7.5 Mg Tablet, 7.5 MG PO 3 times a week for on Monday,Mon,Monday., TAB 01/15/17 Warfarin Sodium* (Coumadin*) 5 Mg Tablet, 5 MG PO 4 times a week for on , ,Mon,Monday., TAB 01/15/17 Metoprolol Tartrate* (Lopressor*) 50 Mg Tab, 50 MG PO DAILY, #60 TAB 01/15/17 Levothyroxine Sodium* (Levoxyl*) 100 Mcg Tablet, 100 MCG PO BEFORE BREAKFAST, # 30 TAB 01/04/17 Hydrochlorothiazide* (Hydrochlorothiazide*) 25 Mg Tab, 25 MG PO DAILY, TAB 11/01/14 Allergies Allergies: Coded Allergies: Pentazocine Lactate (Verified Allergy, Unknown, HALLUCINATIONS, 07/15/17) PMhx/Soc History of Surgery: Yes (CABG, THYROIDECTOMY 2006, HYSTERECTOMY) Anesthesia Reaction: No Hx Neurological Disorder: No Hx Respiratory Disorders: Yes (PE (1975)) Hx Cardiac Disorders: Yes (A FIB, PULMONARY HTN) Hx Psychiatric Problems: No Hx Miscellaneous Medical Probl: Yes (asthma, PE,Greenfilter) Hx Alcohol Use: Yes (SOCIALLY ) Hx Substance Use: No Hx Tobacco Use: No Physical Exam Vitals Vital Signs Date Time Temp Pulse Resp B/P Pulse Ox O2 Delivery O2 Flow Rate FiO2 07/14/17 23:53 98.5 98 18 131/89 100 Vitals stable, triage notes reviewed Physical Exam Const: Well-nourished well-appearing well-hydrated 61-year-old female in no acute distress. Eyes: Normal Conjunctiva PERRLA, EOMI ENT: Panic membranes translucent, auditory canals are clear, nasal mucosa moist, turbinates +1, pharynx is pink, tongue is midline without edema, upper right maxillary gingival swelling noted, halitosis, Neck: Full range of motion..~ No meningismus. Palpable right submandibular lymph node Resp: Respirations even and unlabored, clear to auscultation no rales wheezes or rhonchi Cardio: Regular rate and rhythm, no murmurs Neur: Patient smile is symmetric, speech is clear, tongue is midline, patient able to raise her eyebrows and squish her eyelids close, raise her shoulders up without deficit, no pronator drift. Handgrips bilaterally strong and equal. T Psych: Normal Mood and Affect Procedures/MDM This 61-year-old female presents to emergency department for evaluation of right submandibular swelling, and right upper maxillary gingival pain. Patient reports that she is on Coumadin pressure teeth aggressively and had bleeding the other day, gums have felt swollen since, she now has developed submandibular tender lymphadenopathy, patient reports she has appointment with dentist and gear finisher but reports that she was uncomfortable with the swelling, pain with swallowing. Denies change in voice, difficulty swallowing saliva, and nausea vomiting fever chills. Denies headache , extremity weakness, or dizziness. Emergency room course includes history and physical exam, dental infection versus parotitis. I have considered to do advanced imaging, CAT scan does not have any IV contrast in the hospital today, patient will be treated with Augmentin 875 1 tab p.o. twice daily 10 days, [place] 5/325, 1 tab p.o. every 6 hours as needed count of 10, follow-up with dentist and gear finisher as planned, return to emergency department for worsening of symptoms, fever, difficulty swallowing saliva, headache, or overall worsening of current symptoms. I am aware patient is on Coumadin, has had her pro time and INR drawn today, there is potential increase of pro time with antibiotic use, patient instructed to notify physician of 10 day treatment, continue all current medication as prescribed. Patient is stable with no new complaints during ER course, clinically there is no current evidence to suggest meningitis, sepsis, acute abdomen, acute coronary syndromes , pulmonary embolism or any other emergent condition appearing to require further evaluation or hospitalization. I feel the patient is stable for discharge at this time. I have discussed results, examination findings, the treatment plan with the patient and family present prior to discharge. Indications for emergent reevaluation, side effects of medication were also discussed. All questions were answered. Patient verbalizes understanding and agrees with plan of care. Departure Diagnosis: Primary Impression: Dental infection Additional Impression: Submandibular swelling Condition: Good Patient Instructions: Dental Abscess, Understanding Healthy Teeth and Gums Additional Instructions: Thank you for for coming to [facility] for your care today. Please ask your nurse or provider if you have questions about your care today and do not leave until all your questions have been answered. Please use any medications given as directed and follow-up with your doctor (or the doctor you were referred to) in the next 2-3 days. If you do not have a primary care doctor you may follow up at the [facility] (listed below). You may also use motrin and tylenol as needed for fever and/or pain unless instructed otherwise by your provider or nurse. Indications for more urgent follow-up have been discussed, but you may return to the Emergency Department at ANY time for any worrisome or worsening symptoms. If you have abdominal pain, please know that no test or exam you received is perfect and you should follow up within 8 hours for continued pain. If you had any imaging studies today, such as an X-Ray or CT Scan, these studies will be reviewed later by a radiologist. You will be called if there are important findings that were not identified today, so make sure the contact information you provided at registration is correct. If you received any narcotic pain control medicine today, such as Vicodin, Morphine or Dilaudid, your coordination and judgment may be affected for a number of hours. Please do not drive or operate heavy machinery, and you may want someone to assist you at home. If you were given a prescription for narcotic medication, be aware that it is very addictive- use sparingly and only if necessary. JAMES LANDIS Jul 15, 2017 01:36
[2017-07-15] MEDS ORDERED: ACETAMINOPHEN 325 MG TAB PO ONE (03:00)
[2017-07-15] MEDS ORDERED: AMOX1TAB10 PO (03:10)
[2017-07-15] MEDS ORDERED: HYDR-906 PO (03:10)
[2017-07-15 03:33] VITALS: BP 144/79; PULSE 55; RESP 16; TEMP 98.5
[2017-07-16] MEDS ORDERED: HYDR-906 PO (04:22)
[2017-07-16] MEDS ORDERED: CLIN-73 PO (04:22)
[2017-07-16] MEDS ORDERED: NAPR-688 PO (04:22)
== END 2017-07-15 03:32 | disposition home or self-care (01) ==
LOC: FTE 23:36
DX: K04.7 Periapical abscess without sinus (principal); J45.909 Unspecified asthma, uncomplicated; Z79.01 Long term (current) use of anticoagulants; Z95.1 Presence of aortocoronary bypass graft
CPT/HCPCS: 99284

== ENCOUNTER 2017-07-15 17:27 | Emergency (ER) | payer BC ==
[~2017-07-15] VITALS: Ht 162.6 cm; Wt 86.3 kg
[~2017-07-15 17:27] MED LIST changes: +AMOX1TAB10 PO; +HYDR-906 PO
[2017-07-15 17:31] VITALS: Ht 162.6 cm; Wt 86.3 kg
--- NOTE | 2017-07-15 18:47 | ERD ---
ER Documentation Chief Complaint Chief Complaint swelling of neck , diff swallowing since , was seen here for same HPI This is a 61-year-old female with a history of factor V Leiden, previous DVTs and PEs on Coumadin status post IVC filter, chronic venous insufficiency with bilateral lower extremity edema, hypothyroidism, hypertension presenting again with progressive worsening right facial swelling, pain and dysphagia. The patient was evaluated yesterday and there were concerns of a dental infection versus abscess versus salivary gland infection. The patient was ultimately discharged with a prescription for Augmentin as well as a prescription for [place]. The patient reports taking both doses of her Augmentin today. However, she felt that the swelling was getting worse. She now endorses pain and difficulty with swallowing. She also endorses some drooling. She denies any changes to her voice. It does not sound muffled or altered in any way. She is able to swallow pills, but it is painful for her. She otherwise feels well. The patient denies feeling sick recently. The patient denies fever or chills. The patient has had no headache or vision changes. The patient does not endorse back pain. The patient denies lightheadedness or dizziness. The patient has had no chest pain or shortness of breath or trouble breathing. The patient denies nausea or vomiting. The patient denies abdominal pain or changes to bowel movements or urination. The patient has had no focal deficits. The patient has had no weakness or numbness or tingling to the face or extremities. The patient does report vigorously brushing her teeth several days ago with some bleeding and swelling of her right upper gums, but this has resolved. She does not endorse any dental pain presently. She has a dental appointment on Monday and an ENT appointment on Monday. ROS All systems reviewed and are negative except as per history of present illness. Medications Home Meds Active Scripts Hydrocodone/Acetaminophen ([place] 5-325 Tablet) 1 Each Tablet, 1 TAB PO Q6H Y for PAIN, #7 TAB Prov:BOBY,JAMES 07/15/17 Amoxicillin/Potassium Clav (Amox-Clav 875-125 mg Tablet) 875-125 mg Tab, 1 TAB PO BID for 10 Days, #20 TAB Prov:BOBY,JAMES 07/15/17 Reported Medications Warfarin Sodium* (Coumadin*) 7.5 Mg Tablet, 7.5 MG PO 3 times a week for on Monday,Mon,Monday., TAB 01/15/17 Warfarin Sodium* (Coumadin*) 5 Mg Tablet, 5 MG PO 4 times a week for on , ,Mon,Monday., TAB 01/15/17 Metoprolol Tartrate* (Lopressor*) 50 Mg Tab, 50 MG PO DAILY, #60 TAB 01/15/17 Levothyroxine Sodium* (Levoxyl*) 100 Mcg Tablet, 100 MCG PO BEFORE BREAKFAST, # 30 TAB 01/04/17 Hydrochlorothiazide* (Hydrochlorothiazide*) 25 Mg Tab, 25 MG PO DAILY, TAB 11/01/14 Allergies Allergies: Coded Allergies: Pentazocine Lactate (Verified Allergy, Unknown, HALLUCINATIONS, 07/15/17) PMhx/Soc History of Surgery: Yes (CABG, THYROIDECTOMY 2007, HYSTERECTOMY) Anesthesia Reaction: No Hx Neurological Disorder: No Hx Respiratory Disorders: Yes (PE (1975)) Hx Cardiac Disorders: Yes (A FIB, PULMONARY HTN, hypertension, diabetes) Hx Psychiatric Problems: No Hx Miscellaneous Medical Probl: Yes (asthma, PE,Greenfilter) Hx Alcohol Use: Yes (SOCIALLY ) Hx Substance Use: No Hx Tobacco Use: No FmHx Family History: diabetes Physical Exam Vitals Vital Signs Date Time Temp Pulse Resp B/P Pulse Ox O2 Delivery O2 Flow Rate FiO2 07/15/17 19:21 98.2 62 20 131/86 100 Room Air 07/15/17 17:31 97.7 67 18 122/83 98 Physical Exam Const: No apparent distress, well-developed, well-nourished Head: Normocephalic, Atraumatic Eyes: Normal Conjunctiva. Extraocular movements intact. Pupils equal, round and reactive to light ENT: Normal External Ears, Nose. Moist mucous membranes. Oropharynx patent without asymmetry or edema or tonsillar exudate. + Edema and purulence secreting from the duct of the right submandibular gland underneath the tongue. Neck: Full range of motion. No meningismus. Significant right sided submandibular swelling with fluctuance. Resp: Clear to auscultation bilaterally, No wheezes, rales or rhonchi. Cardio: Regular rate and rhythm. No murmurs, rubs or gallops. Abd: Soft, non tender, non distended. Normal bowel sounds. Skin: No petechiae or rashes. Back: No midline tenderness. No CVA tenderness. Ext: No cyanosis. 1+ pitting bilateral lower extremity edema. Neur: Awake and alert, oriented 4. Cranial nerves intact. No facial droop. Normal strength, sensation and coordination. Psych: Normal Mood and Affect. Result Diagram: 07/15/17 [id number] Results 24 hrs Laboratory Tests Test 07/15/17 19:00 White Blood Count 8.610^3/ul Red Blood Count 4.9510^6/ul Hemoglobin 13.4g/dl Hematocrit 41.1% Mean Corpuscular Volume 83.0fl Mean Corpuscular Hemoglobin 27.1pg Mean Corpuscular Hemoglobin Concent 32.6g/dl Red Cell Distribution Width 16.2% Platelet Count 50909^3/UL Mean Platelet Volume 9.6fl Neutrophils % 72.9% Lymphocytes % 16.6% Monocytes % 9.6% Eosinophils % 0.3% Basophils % 0.3% Nucleated Red Blood Cells % 0.0/100WBC Neutrophils # 6.310^3/ul Lymphocytes # 1.410^3/ul Monocytes # 0.810^3/ul Eosinophils # 0.010^3/ul Basophils # 0.010^3/ul Nucleated Red Blood Cells # 0.010^3/ul Sodium Level 140mmol/L Potassium Level 3.7mmol/L Chloride Level 100mmol/L Carbon Dioxide Level 28mmol/L Anion Gap 16 Blood Urea Nitrogen 23mg/dl Creatinine 0.94mg/dl Glucose Level 99mg/dl Calcium Level 9.6mg/dl Current Medications Medications (Trade) Dose Ordered Sig/Rod Route PRN Reason Start Time Stop Time Status Last Admin Dose Admin Dexamethasone (Decadron) 10 mg ONCE ONCE IV 07/15/17 19:00 07/15/17 19:01 DC 07/15/17 19:17 IV Flush 10 ml 10 ml STK-MED ONCE .ROUTE 07/15/17 20:48 07/15/17 20:49 DC 07/15/17 21:05 Sodium Chloride (NS) 100 ml @ ud STK-MED ONCE .ROUTE 07/15/17 20:48 07/15/17 20:49 DC 07/15/17 21:06 Iohexol (Omnipaque 300mg/ ml) 150 ml STK-MED ONCE .ROUTE 07/15/17 20:48 07/15/17 20:49 DC 07/15/17 21:06 Procedures/[facility] The patient's presentation warrants further investigation. She has purulence excreting from the oral opening from the right submandibular gland. There is a possibility of sialolithiasis. The patient's symptoms are concerning for a submandibular infection. The patient endorses dysphagia and some episodes of drooling at home. However, she is not drooling here. She is able to swallow. Her voice is not hoarse. Given the patient's history, I will obtain a CT of the soft tissue of the neck with contrast for further evaluation. She will be given decadron in the ER. She took both doses of augmentin today. I do not intend to give antibiotics at this time. Blood work will be obtained to evaluate for kidney function prior to CT imaging. Her CBC will be used to evaluate for systemic infection. The patient does not appear systemically ill. LABS The patient's blood work was obtained and reviewed. The patient's CBC shows no leukocytosis and no left shift. The patient is afebrile and I do not suspect a systemic infection. The patient is not anemic today. The patient's platelet count is unremarkable. The patient's BMP shows no signs of metabolic or electrolyte emergencies. The patient has unremarkable renal function testing. IMAGING CT Soft Tissue Neck with contrast - Pending TREATMENT/DISPOSITION The patient was given decadron for possible swelling. She was evaluated yesterday and given a prescription for augmentin, which she has taken today. She has not been on antibiotics long enough to know if outpatient therapy is working. She is stable at this time and her disposition is pending CT imaging. The patient was signed out to Dr. Mitchell at 8PM on 07/15/2017 The patient's blood pressure was elevated at greater than 120/80 while in the emergency department. The patient was otherwise stable with no evidence of hypertensive urgency or emergency or end organ damage. The patient does not require admission for blood pressure control. I have discussed with the patient the risks of hypertension. I have advised the patient to follow up with the primary care physician for outpatient monitoring and treatment for hypertension in 2-3 days. I have instructed the patient to return to the ER for any new or worsening symptoms including chest pain, shortness of breath, headache, blurred vision, confusion, nausea, vomiting or LOC. Disclaimer: Inadvertent spelling and grammatical errors are likely due to EHR/ dictation software use and do not reflect on the overall quality of patient care. Note that the electronic time recorded on this note does not necessarily reflect the actual time of the patient encounter. Departure Diagnosis: Primary Impression: Infection of submandibular gland Additional Impression: Dysphagia Dysphagia type: unspecified Qualified Code: R13.10 - Dysphagia, unspecified type Condition: Fair СВЕТЛАНА REED MD Jul 15, 2017 18:47 СВЕТЛАНА REED MD Jul 15, 2017 18:47
[2017-07-15] MEDS ORDERED: DEXAMETHASONE 10 MG/ML 1 ML INJ IV ONE (19:00)
[2017-07-15 19:29] LABS: BASOPHILS % 0.3 % (0.0-2.0); EOSINOPHILS % 0.3 % (0.0-7.0); HEMATOCRIT 41.1 % (37.0-47.0); HEMOGLOBIN 13.4 g/dl (12.0-16.0); LYMPHOCYTES # 1.4 10^3/ul (0.8-2.9); LYMPHOCYTES % 16.6 % (15.0-51.0); MEAN CORPUSCULAR HEMOGLOBIN 27.1 pg (29.0-33.0); MEAN CORPUSCULAR HGB CONC 32.6 g/dl (32.0-37.0); MEAN PLATELET VOLUME 9.6 fl (7.4-10.4); MONOCYTE # 0.8 10^3/ul (0.3-0.9); MONOCYTES % 9.6 % (0.0-11.0); NEUTROPHIL # 6.3 10^3/ul (1.6-7.5); NEUTROPHILS % 72.9 % (39.0-77.0); PLATELET COUNT 291 10^3/UL (140-415); RED BLOOD COUNT 4.95 10^6/ul (4.20-5.40); RED CELL DISTRIBUTION WIDTH 16.2 % (11.5-14.5); WHITE BLOOD COUNT 8.6 10^3/ul (4.8-10.8)
[2017-07-15 19:55] LABS: CALCIUM 9.6 mg/dl (8.4-10.2); CREATININE 0.94 mg/dl (0.44-1.00); POTASSIUM 3.7 mmol/L (3.5-5.1)
[2017-07-15] MEDS ORDERED: SOD CHLORIDE 0.9% 100 ML ONE (20:48)
[2017-07-15] MEDS ORDERED: IOHEXOL 300MG/ML 150 ML BTL ONE (20:48)
--- NOTE | 2017-07-15 22:26 | RADRPT ---
PROCEDURE: CT NECK WITH CONTRAST CLINICAL INDICATION: 61 years of age, female. Submandibular infection. Dysphagia. Possible sialolit hiasis. TECHNIQUE: A CT scan of the neck was performed with intravenous contrast. Coronal and sagittal ref ormatted images were obtained from the axial source images. Images were reviewed on a [employer] OGK-5 PACS workstation. 80 mL of Omnipaque-300 was administered during examination. DICOM images are yao ilable. CTDIvol: 9 mGy. DLP: 201 mGy-cm. One or more of the following dose reduction techniques were used: - Automated exposure control. - Adjustment of the mA and/or kV according to patient size. - Use of iterative reconstruction technique. COMPARISON: None available. FINDINGS: Soft tissues: Soft tissue swelling in the right submandibular space around the right submandibular g land. Otherwise normal. Pharynx/airway: Benign appearing calcifications in the epiglottis. The nasopharynx, oropharynx, hypo pharynx, larynx, and trachea are normal. Retropharyngeal space appears normal. Major salivary glands: There is a 0.3 cm calculus in the right submandibular duct as it exits the right submandibular gland (3/34 and 601/47). There is edema surrounding the right submandibular gland in the right submandibu lar space. Right submandibular gland is hyperenhancing compared to the left. Negative for rim-enhanc ing fluid collections. Left submandibular gland appears normal. There is a coarse calcification in the inferior right parotid gland likely due to chronic inflammati on. Parotid glands otherwise appear normal. Thyroid: Surgically absent with surgical clips in the thyroid bed. Negative for evidence of a locall y recurrent mass. 0.6 cm nodule in the left thyroid bed likely represents a lymph node. Lymph nodes: Scattered lymph nodes in both sides of the neck are likely reactive. Vessels: Atherosclerotic calcification right carotid bulb. Internal carotid arteries are tortuous th at may be seen with hypertension. Right internal jugular vein is distended that may be due to right heart dysfunction. Bones: No suspicious bone lesions. Lung apices: No significant abnormality. Visualized brain parenchyma: No significant abnormality. Additional comment: None. IMPRESSION: 1. Right submandibular sialolithiasis and sialadenitis. There is a 0.3 cm calculus in the proximal r ight submandibular duct as it exits the right submandibular gland with inflammatory changes in the r ight submandibular space. No abnormal fluid collections are identified. 2. Status post thyroidectomy. RPTAT: HCTS Nahum Ruiz Physician Date Time Electronically viewed and signed by Nahum Ruiz Physician on 07/15/2017 22:26 CS/
[2017-07-15 22:36] LABS: INR 2.42; PT RATIO 2.1
[2017-07-16] MEDS ORDERED: HYDR-906 PO (04:22)
[2017-07-16] MEDS ORDERED: NAPR-688 PO (04:22)
[2017-07-16] MEDS ORDERED: CLIN-73 PO (04:22)
--- NOTE | 2017-07-16 04:25 | EN ---
Date/Time of Note Date/Time of Note DATE: 07/16/17 TIME: 04:24 ER Progress Note Patient CT returned with a diagnosis of sialolithiasis. May not be infection involved. Patient's laboratories were normal. I am going to discharge her with clindamycin as well as naproxen and [place]. Number care follow-up instructions for ENT referral also given. Return precautions as well. CT soft tissue neck interpretation: Right submandibular sialolith with surrounding inflammation. No abnormal fluid collection. HERBER BRAMBILA DO Jul 16, 2017 04:25
[2017-07-16 04:53] VITALS: BP 147/57; PULSE 52; RESP 14; TEMP 97.9
== END 2017-07-16 04:54 | disposition home or self-care (01) ==
LOC: E/R 17:27
DX: K11.8 Other diseases of salivary glands (principal); R13.10 Dysphagia, unspecified; I10 Essential (primary) hypertension; E11.9 Type 2 diabetes mellitus without complications; J45.909 Unspecified asthma, uncomplicated; E03.9 Hypothyroidism, unspecified; Z79.01 Long term (current) use of anticoagulants
CPT/HCPCS: 70491; 80048; 85025; 85610; 96374; 99285; J1100; Q9967

== ENCOUNTER 2017-08-03 14:29 | Inpatient (IN) | END 2017-08-09 15:35 | disposition home or self-care (01) | DRG 378 ==

== ENCOUNTER 2017-12-31 19:40 | Emergency (ER) | END 2017-12-31 20:52 | disposition home or self-care (01) ==

== ENCOUNTER 2018-02-12 07:47 | Emergency (ER) | END 2018-02-12 09:12 | disposition home or self-care (01) ==

== ENCOUNTER 2018-03-14 07:46 | Emergency (ER) | END 2018-03-14 09:35 | disposition home or self-care (01) ==

== ENCOUNTER 2018-03-30 15:42 | Emergency (ER) | END 2018-03-30 21:20 | disposition home or self-care (01) ==

== ENCOUNTER 2018-04-21 16:44 | Emergency (ER) | END 2018-04-21 19:05 | disposition home or self-care (01) ==

== ENCOUNTER 2018-04-29 08:04 | Emergency (ER) | END 2018-04-29 11:29 | disposition home or self-care (01) ==

== ENCOUNTER 2018-04-30 09:31 | Inpatient (IN) | END 2018-05-06 18:31 | disposition home or self-care (01) | DRG 243 ==

== ENCOUNTER 2018-07-03 02:57 | Observation (INO) | END 2018-07-04 13:01 | disposition home or self-care (01) ==

== ENCOUNTER 2018-10-25 16:07 | Emergency (ER) | payer BC ==
[~2018-10-25] VITALS: Ht 167.6 cm; Wt 91.1 kg
[~2018-10-25 16:07] MED LIST changes: -AMOX1TAB10 PO; +DILT120C77 PO; -HYDR-906 PO; -HYDR25TA6 PO; -METO-429 PO; +TRAM50TA2 PO; +WARF2TAB PO; +WARF5TAB PO; -WARF5TAB72 PO; -WARF7.5T PO
[2018-10-25 16:12] VITALS: Ht 167.6 cm; Wt 91.1 kg
[2018-10-25] MEDS ORDERED: LEVALBUTEROL (NEB) 1.25 MG/0.5 ML AMP INH STA (18:46)
[2018-10-25] MEDS ORDERED: METHYLPREDNISOLONE 125 MG INJ IV STA (18:46)
[2018-10-25] MEDS ORDERED: IPRATROPIUM (NEB) 0.5 MG/2.5 ML AMP NEB STA (18:46)
--- NOTE | 2018-10-25 19:19 | ERD ---
ER Documentation Chief Complaint Chief Complaint Complains of SOB hx of Asthma HPI 62-year-old female with history of bradycardia requiring pacemaker, pulmonary hypertension, pulmonary embolism, presents due to increasing wheezing and shortness of breath for the last 2 weeks. States that the wheezing is worse at night. States she has been taking her Xopenex as directed but has not been effective in resolving her wheezing. Denies any chest pain, dyspnea, orthopnea, chronic cough, leg pain, hemoptysis, lightheadedness, recent immobility or surgeries, recent travel, respiratory distress, or hormone use. ROS All systems reviewed and are negative except as per history of present illness. Medications Home Meds Active Scripts Levalbuterol* (Xopenex* HFA) 15 Gm Inha, 1-2 PUFF INH Q4 PRN for SHORTNESS OF BREATH, #1 EA Prov:VAIBHAV ALANIS 10/25/18 Prednisone* (Prednisone*) 20 Mg Tab, 40 MG PO DAILY for asthma for 4 Days, TAB Prov:VAIBHAV ALANIS 10/25/18 Diltiazem Hcl* (Cardizem CD*) 120 Mg Cap.sr.24h, 240 MG PO b.i.d, #30 CAP Prov:HASMUKH SARGENT MD 07/04/18 Tramadol HCl (Tramadol HCl) 50 Mg Tablet, 50 MG PO Q6H PRN for MODERATE PAIN LEVEL 4-6 for 10 Days, #30 TAB 0 Refills Prov:AYLEEN CROWLEY MD 05/06/18 Reported Medications Warfarin Sodium* (Coumadin*) 2 Mg Tablet, 7.5 MG PO MONWEDFRI, TAB 04/21/18 Warfarin Sodium* (Coumadin*) 5 Mg Tablet, 5 MG PO TUE,THUR,SAT,SUN, TAB 08/01/17 Levothyroxine Sodium* (Levoxyl*) 100 Mcg Tablet, 100 MCG PO BEFORE BREAKFAST, #30 TAB 01/04/17 Allergies Allergies: Coded Allergies: Pentazocine Lactate (Verified Allergy, Unknown, HALLUCINATIONS, 07/04/18) PMhx/Soc History of Surgery: Yes Anesthesia Reaction: No Hx Neurological Disorder: No Hx Respiratory Disorders: Yes (PE, asthma, pulmo HTN) Hx Cardiac Disorders: Yes (pericarditis, Pacemaker, IVC placement, A fib/flutter) Hx Psychiatric Problems: No Hx Miscellaneous Medical Probl: No Hx Alcohol Use: No Hx Substance Use: No Hx Tobacco Use: No Smoking Status: Never smoker FmHx Family History: No diabetes, No coronary disease, No other Physical Exam Vitals Vital Signs Date Temp Pulse Resp B/P (MAP) Pulse Ox O2 O2 Flow FiO2 Time Delivery Rate 10/25/18 98.3 63 20 133/74 96 Room Air 20:24 (93) 10/25/18 72 18 96 21 19:13 10/25/18 97.7 77 20 135/70 93 16:12 (91) Physical Exam Const: No acute distress Head: Atraumatic Eyes: Normal Conjunctiva ENT: Normal External Ears, Nose and Mouth. Neck: Full range of motion. No meningismus. Resp: Clear to auscultation bilaterally Cardio: Regular rate and rhythm, no murmurs Abd: Soft, non tender, non distended. Normal bowel sounds Skin: No petechiae or rashes Back: No midline or flank tenderness Neur: Awake and alert Psych: Normal Mood and Affect Results 24 hrs Current Medications Medications Dose Sig/Rod Start Time Status Last (Trade) Ordered Route PRN Stop Time Admin Dose Reason Admin Ipratropium 0.5 mg ONCE STAT 10/25/18 DC 10/25/18 [place] NEB 18:46 19:07 (Atrovent 10/25/18 18:51 0.02% (Neb)) 125 mg ONCE STAT 10/25/18 DC 10/25/18 Methylprednis IV 18:46 18:56 olone Sodium 10/25/18 18:51 Succinate (Solu-Medrol) 1.25 mg ONCE STAT 10/25/18 DC 10/25/18 Levalbuterol INH 18:46 19:07 (Xopenex 10/25/18 18:51 Neb) Procedures/MDM EKG: Rate/Rhythm: Normal Sinus Rhythm QRS, ST, T-waves: No changes consistent w/ acute ischemia Impression: No evidence of ischemia or arrhythmia DIAGNOSTIC IMAGING REPORT Patient: IVETH LEON : 1955 Age: 62 Sex: F MR #: [id number] DOS: 10/25/18 1846 Ordering MD: VAIBHAV ALANIS Location: [facility] Room/Bed: PROCEDURE: XR Chest. CLINICAL INDICATION: Wheezing, dyspnea TECHNIQUE: Single frontal chest x-ray. COMPARISON: X-ray, 07/03/2018 FINDINGS: No acute infiltrate, pleural effusion or pneumothorax is identified. Stable mild cardiomegaly. Right-sided dual lead pacemaker remains in place. Sternal and left ribs cerclage wires remain in place. The osseous structures are unremarkable. IMPRESSION: 1. No evidence of acute cardiopulmonary process. 2. Stable mild cardiomegaly. RPTAT: HDWR .Pedro Olivia MD, Date Time Electronically viewed and signed by .Pedro Olivia MD, on 10/25/2018 19:15 .R/ CC: VAIBHAV ALANIS [id number] MDM: 62-year-old female with history of bradycardia requiring pacemaker, pulmonary hypertension, pulmonary embolism, presents due to increasing wheezing and shortness of breath for the last 2 weeks. States that the wheezing is worse at night. States she has been taking her Xopenex as directed but has not been effective in resolving her wheezing. Denies any chest pain, dyspnea, orthopnea, chronic cough, leg pain, hemoptysis, lightheadedness, recent immobility or surgeries, recent travel, respiratory distress, or hormone use. Chest x-ray was performed and was within normal limits. EKG was also performed and results within normal limits. Patient was giving breathing treatment with Xopenex and IV steroids in the ER and stated after treatment that she felt much better. In addition's patient's O2 sat went up to 96%. Advised patient that asthma needs to be treated by primary care physician and she may need to have her medications managed more appropriately for her condition. Patient understood and agreed to follow-up with primary care. I have low suspicition for acute coronary syndrome, pulmonary embolism, aortic dissection, AAA, pneumothorax, esophageal rupture, pericarditis, myocarditis, acute heart failure, status asthmaticus, or pneumonia based on EKG, imaging, labs, patient history and exam. In addition, patient does not meet Wells or PERC criteria for d-dimer. Patient's O2 sat and vitals were normal at the time of discharge. Patient felt comfortable going home. Patient discharged with Rx for prednisone as well as a refill of her Xopenex. Patient discharged with strict ER precautions. Patient advised to follow up with PMD. All questions answered at discharge. Departure Diagnosis: Primary Impression: Asthma Asthma severity: unspecified severity Asthma persistence: unspecified Asthma complication type: unspecified Qualified Codes: J45.909 - Unspecified asthma, uncomplicated Condition: Stable VAIBHAV ALANIS Oct 25, 2018 19:19
[2018-10-25] MEDS ORDERED: PRED20TA PO (19:51)
[2018-10-25] MEDS ORDERED: LEVA15HF6 INH (20:19)
[2018-10-25 20:24] VITALS: BP 133/74; PULSE 63; RESP 20
== END 2018-10-25 20:35 | disposition home or self-care (01) ==
LOC: FTE 16:07
DX: J45.901 Unspecified asthma with (acute) exacerbation (principal); I10 Essential (primary) hypertension; Z95.0 Presence of cardiac pacemaker
CPT/HCPCS: 71045; 93005; 94664; 96374; 99284; J2930

== ENCOUNTER 2018-12-02 06:01 | Emergency (ER) | payer BC ==
[~2018-12-02] VITALS: Ht 149.9 cm; Wt 89.4 kg
[~2018-12-02 06:01] MED LIST changes: +LEVA15HF6 INH; +PRED20TA PO
[2018-12-02 06:08] VITALS: BP 154/75; PULSE 66; RESP 18; Ht 149.9 cm; Wt 89.4 kg
[2018-12-02] MEDS ORDERED: KETOROLAC 15 MG INJ IV STA (07:01)
[2018-12-02] MEDS ORDERED: DEXAMETHASONE 10 MG/ML 1 ML INJ IM ONE (07:30)
--- NOTE | 2018-12-02 07:36 | ERD ---
ER Documentation Chief Complaint Chief Complaint swelling right side of neck x 3 days, painful swallowing HPI This is a 63-year-old female with a past medical history of pericarditis, A. fib/flutter, previous PE status post IVC filter placement currently on Coumadin, pulmonary hypertension, CHF, hypothyroidism, previous sialolithiasis who is presenting with recurrent right-sided submandibular swelling, progressively worsening over the last 3 days. She reports an aching gnawing moderate pain coming from the submandibular area and radiating into the right teeth and ear. The patient endorses pain with swallowing her saliva. She does not endorse actually drooling. She does not have a hoarse voice. She has been able to swallow even though it is painful. She has been attempting sour fruits and candies without relief. She does not endorse any fever or chills and she has not felt sick recently. The patient has had no headache or vision changes. The patient does not endorse neck or back pain. The patient denies lightheadedness or dizziness. The patient has had no chest pain or trouble breathing. The patient denies nausea or vomiting. The patient denies abdominal pain. The patient denies changes to bowel movements or urination. The patient has had no focal deficits. The patient has had no weakness or numbness or tingling to the face or extremities. ROS All systems reviewed and are negative except as per history of present illness. Medications Home Meds Active Scripts Levalbuterol* (Xopenex* HFA) 15 Gm Inha, 1-2 PUFF INH Q4 PRN for SHORTNESS OF BREATH, #1 EA Prov:VAIBHAV ALANIS 10/25/18 Prednisone* (Prednisone*) 20 Mg Tab, 40 MG PO DAILY for asthma for 4 Days, TAB Prov:VAIBHAV ALANIS 10/25/18 Diltiazem Hcl* (Cardizem CD*) 120 Mg Cap.sr.24h, 240 MG PO b.i.d, #30 CAP Prov:HASMUKH SARGENT MD 07/04/18 Tramadol HCl (Tramadol HCl) 50 Mg Tablet, 50 MG PO Q6H PRN for MODERATE PAIN LEVEL 4-6 for 10 Days, #30 TAB 0 Refills Prov:AYLEEN CROWLEY MD 05/06/18 Reported Medications Warfarin Sodium* (Coumadin*) 2 Mg Tablet, 7.5 MG PO MONWEDFRI, TAB 04/21/18 Warfarin Sodium* (Coumadin*) 5 Mg Tablet, 5 MG PO TUE,THUR,SAT,SUN, TAB 08/01/17 Levothyroxine Sodium* (Levoxyl*) 100 Mcg Tablet, 100 MCG PO BEFORE BREAKFAST, #30 TAB 01/04/17 Allergies Allergies: Coded Allergies: Pentazocine Lactate (Verified Allergy, Unknown, HALLUCINATIONS, 07/04/18) PMhx/Soc History of Surgery: Yes Anesthesia Reaction: No Hx Neurological Disorder: No Hx Respiratory Disorders: Yes (PE, asthma, pulmo HTN) Hx Cardiac Disorders: Yes (pericarditis, Pacemaker, IVC placement, A fib/flutter) Hx Psychiatric Problems: No Hx Miscellaneous Medical Probl: No Hx Alcohol Use: No Hx Substance Use: No Hx Tobacco Use: No FmHx Family History: No diabetes Physical Exam Vitals Vital Signs Date Temp Pulse Resp B/P (MAP) Pulse Ox O2 O2 Flow FiO2 Time Delivery Rate 12/02/18 98.3 66 18 154/75 94 06:08 (101) Physical Exam Const: No acute distress Head: Atraumatic Eyes: Normal Conjunctiva ENT: Normal External Ears, Nose and Mouth. Airway is patent. Normal tympanic membranes. Normal oropharynx. Neck: Full range of motion. No meningismus. Right submandibul ar glandular/nodular firmness and edema. Resp: Clear to auscultation bilaterally Cardio: Regular rate and rhythm, no murmurs. Sternotomy scar present. Left chest pacemaker present. Abd: Soft, non tender, non distended. Normal bowel sounds Skin: No petechiae or rashes Back: No midline or flank tenderness Ext: No cyanosis, or edema Neur: Awake and alert Psych: Normal Mood and Affect Result Diagram: 12/02/18 0726 12/02/18 0808 Results 24 hrs Laboratory Tests Test 12/02/18 07:26 12/02/18 08:08 White Blood Count 8.6 10^3/ul Red Blood Count 5.08 10^6/ul Hemoglobin 13.5 g/dl Hematocrit 43.2 % Mean Corpuscular Volume 85.0 fl Mean Corpuscular Hemoglobin 26.6 pg Mean Corpuscular Hemoglobin Concent 31.3 g/dl Red Cell Distribution Width 16.6 % Platelet Count 293 10^3/UL Mean Platelet Volume 9.8 fl Immature Granulocytes % 0.200 % Neutrophils % 70.5 % Lymphocytes % 18.0 % Monocytes % 10.7 % Eosinophils % 0.2 % Basophils % 0.4 % Nucleated Red Blood Cells % 0.0 /100WBC Immature Granulocytes # 0.020 10^3/ul Neutrophils # 6.0 10^3/ul Lymphocytes # 1.5 10^3/ul Monocytes # 0.9 10^3/ul Eosinophils # 0.0 10^3/ul Basophils # 0.0 10^3/ul Nucleated Red Blood Cells # 0.0 10^3/ul Sodium Level 141 mmol/L 142 mmol/L Potassium Level 7.6 mmol/L 3.6 mmol/L Chloride Level 99 mmol/L 103 mmol/L Carbon Dioxide Level 32 mmol/L 31 mmol/L Anion Gap 10 8 Blood Urea Nitrogen 18 mg/dl 17 mg/dl Creatinine 0.71 mg/dl 0.72 mg/dl Est Glomerular Filtrat Rate mL/min > 60 mL/min > 60 mL/min Glucose Level 120 mg/dl 112 mg/dl Calcium Level 9.4 mg/dl 9.4 mg/dl Current Medications Medications Dose Sig/Rod Start Time Status Last (Trade) Ordered Route PRN Stop Time Admin Dose Reason Admin 10 mg ONCE ONCE 12/02/18 DC 12/02/18 Dexamethasone IM 07:30 12/02/18 08:03 (Decadron) 07:31 Ketorolac 15 mg ONCE STAT 12/02/18 DC 12/02/18 Tromethamine IV 07:01 12/02/18 07:01 (Toradol) 07:04 Iohexol 150 ml STK-MED 12/02/18 DC 12/02/18 (Omnipaque ONCE .ROUTE 08:04 12/02/18 08:54 300mg/ ml) 08:05 Sodium 100 ml @ ud STK-MED 12/02/18 DC 12/02/18 Chloride ONCE .ROUTE 08:04 12/02/18 08:54 08:05 Procedures/MDM MDM The patient's presentation warrants further investigation. Previous medical records, if available, were reviewed. LABS The patient's laboratory testing was obtained and reviewed. No emergent treatment was required unless described below. CBC: No E/o systemic infection or severe anemia or thrombocytopenia Chemistry: No E/o severe acidosis or alkalosis or renal failure or diabetic ketoacidosis IMAGING Imaging and Radiology interpretation reviewed. CT soft tissue neck with contrast FINDINGS: Calculi present in the proximal and distal right submandibular duct up to the oropharynx measuring up to 5 mm with dilated duct. Right submandibular gland relatively enlarged with mild enhancement, and adjacent soft tissue stranding extending into the submental region, and edema seen in the right sublingual space. No discrete rim enhancing fluid collection to suggest abscess identified. Scattered small lymph nodes in the bilateral internal jugular chains and posterior cervical triangles, greater on the left, also bilateral submandibular - submental regions and upper mediastinum, nonspecific in appearance, not meeting size criteria. Pharynx, larynx appear grossly unremarkable. Thyroid gland absent with clips in the thyroid bed. 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 Right carotid atherosclerotic calcifications noted. Bilateral parotid glands, left submandibular gland unremarkable. 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 Imaged skull base intact. Perivertebral space unremarkable. Oral cavity structures appear obscu red by artifacts without abnormality seen. Mastoids, imaged paranasal sinuses grossly clear. Osseous structures appear intact. Lung apices grossly clear. IMPRESSION: 1. Right submandibular duct calculi with dilated/obstructed duct, and findings suggesting right submandibular sialoadenitis and adjacent cellulitis extending into the submental region and right sublingual region. No abscess identified. 2. Nonspecific bilateral cervical and upper mediastinal lymph nodes and meeting size criteria. 3. Status post thyroidectomy. 4. 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 Electronically viewed and signed by .Trent Le MD, on 12/02/2018 10:31 TREATMENT/DISPOSITION The patient presents with symptoms most consistent with sialolithiasis. The patient appears to have right submandibular sialoadenitis and adjacent cellulitis on the CT scan with bilateral lymphadenopathy. This will require treatment in an outpatient setting. There is no evidence of abscess. I have low suspicion for impending airway compromise. I do not feel the patient requires admission. The patient has previously seen an ENT physician for this. The patient will require follow-up. The patient was treated with Decadron and Toradol with improvement of pain. The patient's initial potassium was elevated, but it was hemolyzed. Repeat testing indicated a normal potassium level. DISCHARGE Upon reevaluation of the patient, symptoms have improved. No emergent diagnoses were identified. At this time, I feel that the patient stable for discharge. The patient was instructed to follow-up with a primary care physician in 1-3 days. The patient will be given strict precautions with which to return to the emergency department. Prescriptions: Augmentin, oxycodone, ibuprofen The patient's blood pressure was elevated at greater than 120/80 while in the emergency department. The patient was otherwise stable with no evidence of hypertensive urgency or emergency. The patient does not require admission for blood pressure control. I have discussed with the patient the risks of hypertension. I have instructed the patient to return to the ER for any new or worsening symptoms including chest pain, shortness of breath, headache, blurred vision, confusion, nausea, vomiting or LOC. I have advised the patient to follow up with the primary care physician for outpatient monitoring and treatment for hypertension in 1-3 days. Disclaimer: Inadvertent spelling and grammatical errors are likely due to EHR/dictation software use and do not reflect on the overall quality of patient care. Note that the electronic time recorded on this note does not necessarily reflect the actual time of the patient encounter. Departure Diagnosis: Primary Impression: Sialolithiasis of submandibular gland Additional Impression: Cellulitis of submandibular region Condition: Stable Patient Instructions: Salivary Duct Obstruction Additional Instructions: Thank you for for coming to [facility] for your care today. Please ask your nurse or provider if you have questions about your care today and do not leave until all your questions have been answered. Please use any medications given as directed and follow-up with your doctor (or the doctor you were referred to) in the next 1-3 days. If you do not have a primary care doctor you may follow up at the [facility] or formerly [facility] (listed below). You may also use motrin and tylenol as needed for fever and/or pain unless instructed otherwise by your provider or nurse. Indications for more urgent follow-up have been discussed, but you may return to the Emergency Department at ANY time for any worrisome or worsening symptoms. If you have abdominal pain, please know that no test or exam you received is perfect and you should follow up within 8 hours for continued pain. If you had any imaging studies today, such as an X-Ray or CT Scan, these studies will be reviewed later by a radiologist. You will be called if there are important findings that were not identified today, so make sure the contact information you provided at registration is correct. If you received any narcotic pain control medicine today, such as Vicodin, Morphine or Dilaudid, your coordination and judgment may be affected for a number of hours. Please do not drive or operate heavy machinery, and you may want someone to assist you at home. If you were given a prescription for narcotic medication, be aware that it is very addictive- use sparingly and only if necessary. PLEASE SEEK FURTHER EVALUATION AND MANAGEMENT AT YOUR DOCTORS OFFICE WITHIN THE NEXT 1-3 DAYS. IT IS YOUR RESPONSIBILITY TO MAKE AN APPOINTMENT FOR FOLOW-UP CARE. IF YOU HAVE A PRIMARY DOCTOR, PLEASE CALL THEIR OFFICE TO SCHEDULE AN APPOINTMENT FOR FOLLOW UP. IF YOU DO NOT HAVE A PRIMARY DOCTOR YOU CAN CALL OUR PHYSICIAN REFERRAL HOTLINE AT IF YOU CAN NOT AFFORD TO SEE A PHYSICIAN YOU CAN CHOSE FROM THE FOLLOWING [facility] CLINICS: [facility] [address] [facility] [place] [address] [facility] [address] [facility] [facility] [address] [facility] [facility] [address] [facility]. [facility]. [address] СВЕТЛАНА CORONA MD December 02, 2018 07:36
[2018-12-02] MEDS ORDERED: IOHEXOL 300MG/ML 150 ML BTL ONE (08:04)
[2018-12-02] MEDS ORDERED: SOD CHLORIDE 0.9% 100 ML ONE (08:04)
[2018-12-02] MEDS ORDERED: OXYC5CAP17 PO (10:46)
[2018-12-02] MEDS ORDERED: AMOX1TAB10 PO (10:46)
[2018-12-02] MEDS ORDERED: IBUP-1542 PO (10:46)
== END 2018-12-02 11:10 | disposition home or self-care (01) ==
LOC: E/R 06:01
DX: K11.5 Sialolithiasis (principal); K12.2 Cellulitis and abscess of mouth; E03.9 Hypothyroidism, unspecified; I50.9 Heart failure, unspecified; J45.909 Unspecified asthma, uncomplicated; R40.2142 Coma scale, eyes open, spontaneous, at arrival to emergency department; R40.2362 Coma scale, best motor response, obeys commands, at arrival to emergency department; Z79.01 Long term (current) use of anticoagulants; Z95.0 Presence of cardiac pacemaker
CPT/HCPCS: 70491; 80048; 85025; 96372; 96374; 99285; J1100; J1885; Q9967

== ENCOUNTER 2018-12-04 10:50 | Inpatient (IN) | payer BC ==
[~2018-12-04] VITALS: Ht 149.9 cm; Wt 87.3 kg
[~2018-12-04 10:50] MED LIST changes: +AMOX1TAB10 PO; +IBUP-1542 PO; +OXYC5CAP17 PO
[2018-12-04] MEDS ORDERED: SOD CHLORIDE 0.9% 1,000 ML IV STA (11:28)
[2018-12-04] MEDS ORDERED: ONDANSETRON 4 MG INJ IV STA (11:28)
[2018-12-04] MEDS ORDERED: morphine 4 MG/ML VIAL IV STA (11:28)
[2018-12-04] MEDS ORDERED: SOD CHLORIDE 0.9% 100 ML ONE (12:44)
[2018-12-04] MEDS ORDERED: IOHEXOL 300MG/ML 150 ML BTL ONE (12:44)
[2018-12-04] MEDS ORDERED: PIPER-TAZO 3.375 GM IV (PMX) 100 ML IVPB ONE (14:30)
--- NOTE | 2018-12-04 14:30 | ERD ---
ER Documentation Chief Complaint Chief Complaint SWOLLEN THROAT, GLANDS HPI 63-year-old female presenting with pain to her right throat. Patient was here 4 days ago and diagnosed with sialadenitis and was discharged with oral antibi otics. Patient has had difficulty taking the antibiotics due to stomach upset. Patient states she is now having difficulty swallowing and feels pressure on her airway. Denies any fevers. Medical history is hypertension. NKDA. Surgical history pacemaker. Social history denies ROS All systems reviewed and are negative except as per history of present illness. Medications Home Meds Active Scripts Oxycodone Hcl* (IR) (Oxycodone Hcl*) 5 Mg Capsule, 5 MG PO Q6 PRN for PAIN, #10 TAB Prov:СВЕТЛАНА REED MD 12/02/18 Ibuprofen* (Motrin*) 600 Mg Tab, 600 MG PO Q6H PRN for PAIN AND OR ELEVATED TEMP, #30 TAB Prov:СВЕТЛАНА REED MD 12/02/18 Amoxicillin/Potassium Clav (Amox-Clav 875-125 mg Tablet) 875-125 mg Tab, 1 TAB PO BID for 10 Days, #20 TAB Prov:СВЕТЛАНА REED MD 12/02/18 Levalbuterol* (Xopenex* HFA) 15 Gm Inha, 1-2 PUFF INH Q4 PRN for SHORTNESS OF BREATH, #1 EA Prov:VAIBHAV ALANIS 10/25/18 Prednisone* (Prednisone*) 20 Mg Tab, 40 MG PO DAILY for asthma for 4 Days, TAB Prov:VAIBHAV ALANIS 10/25/18 Diltiazem Hcl* (Cardizem CD*) 120 Mg Cap.sr.24h, 240 MG PO b.i.d, #30 CAP Prov:HASMUKH SARGENT MD 07/04/18 Tramadol HCl (Tramadol HCl) 50 Mg Tablet, 50 MG PO Q6H PRN for MODERATE PAIN LEVEL 4-6 for 10 Days, #30 TAB 0 Refills Prov:AYLEEN CROWLEY MD 05/06/18 Reported Medications Warfarin Sodium* (Coumadin*) 2 Mg Tablet, 7.5 MG PO MONWEDFRI, TAB 04/21/18 Warfarin Sodium* (Coumadin*) 5 Mg Tablet, 5 MG PO TUE,THUR,SAT,SUN, TAB 08/01/17 Levothyroxine Sodium* (Levoxyl*) 100 Mcg Tablet, 100 MCG PO BEFORE BREAKFAST, #30 TAB 01/04/17 Allergies Allergies: Coded Allergies: Pentazocine Lactate (Verified Allergy, Unknown, HALLUCINATIONS, 07/04/18) PMhx/Soc History of Surgery: Yes Anesthesia Reaction: No Hx Neurological Disorder: No Hx Respiratory Disorders: Yes (PE, asthma, pulmo HTN) Hx Cardiac Disorders: Yes (pericarditis, Pacemaker, IVC placement, A fib/flutter) Hx Psychiatric Problems: No Hx Miscellaneous Medical Probl: No Hx Alcohol Use: No Hx Substance Use: No Hx Tobacco Use: No FmHx Family History: No diabetes, No coronary disease, No other Physical Exam Vitals Vital Signs Date Temp Pulse Resp B/P (MAP) Pulse Ox O2 O2 Flow FiO2 Time Delivery Rate 12/04/18 98.5 77 18 163/97 95 10:52 (119) Physical Exam GENERAL: The patient is well-appearing, well-nourished, in no acute distress HEENT: Atraumatic. Conjunctivae are pink. Pupils equal, round, and reactive to light. There is no scleral icterus. Tympanic membranes clear bilaterally. Oropharynx clear. No nystagmus or photophobia. No trismus NECK: C-spine is soft and supple. There is no meningismus. There is no cervical lymphadenopathy. CHEST: Clear to auscultation bilaterally. There are no rales, wheezes or rhonchi. HEART: Regular rate and rhythm. No murmurs, clicks, rubs or gallops. SKIN: Indurated mass noted to the submandibular region of the right side. Result Diagram: 12/04/18 1207 12/04/18 1207 Results 24 hrs Laboratory Tests Test 12/04/18 12:07 White Blood Count 14.8 10^3/ul Red Blood Count 5.01 10^6/ul Hemoglobin 13.3 g/dl Hematocrit 42.4 % Mean Corpuscular Volume 84.6 fl Mean Corpuscular Hemoglobin 26.5 pg Mean Corpuscular Hemoglobin Concent 31.4 g/dl Red Cell Distribution Width 16.4 % Platelet Count 303 10^3/UL Mean Platelet Volume 9.7 fl Immature Granulocytes % 0.300 % Neutrophils % 79.9 % Lymphocytes % 10.4 % Monocytes % 9.3 % Eosinophils % 0.0 % Basophils % 0.1 % Nucleated Red Blood Cells % 0.0 /100WBC Immature Granulocytes # 0.050 10^3/ul Neutrophils # 11.8 10^3/ul Lymphocytes # 1.5 10^3/ul Monocytes # 1.4 10^3/ul Eosinophils # 0.0 10^3/ul Basophils # 0.0 10^3/ul Nucleated Red Blood Cells # 0.0 10^3/ul Urine Color STRAW Urine Clarity CLEAR Urine pH 7.0 Urine Specific [place] 1.012 Urine Ketones NEGATIVE mg/dL Urine Nitrite NEGATIVE mg/dL Urine Bilirubin NEGATIVE mg/dL Urine Urobilinogen NEGATIVE mg/dL Urine Leukocyte Esterase NEGATIVE Cass/ul Urine Hemoglobin NEGATIVE mg/dL Urine Glucose NEGATIVE mg/dL Urine Total Protein NEGATIVE mg/dl Sodium Level 144 mmol/L Potassium Level 3.6 mmol/L Chloride Level 100 mmol/L Carbon Dioxide Level 33 mmol/L Anion Gap 11 Blood Urea Nitrogen 24 mg/dl Creatinine 0.83 mg/dl Est Glomerular Filtrat Rate mL/min > 60 mL/min Glucose Level 102 mg/dl Calcium Level 9.4 mg/dl Total Bilirubin 0.4 mg/dl Direct Bilirubin 0.00 mg/dl Indirect Bilirubin 0.4 mg/dl Aspartate Amino Transf (AST/SGOT) 25 IU/L Alanine Aminotransferase (ALT/SGPT) 16 IU/L Alkaline Phosphatase 96 IU/L Total Protein 8.5 g/dl Albumin 4.7 g/dl Globulin 3.80 g/dl Albumin/Globulin Ratio 1.23 Current Medications Medications Dose Sig/Rod Start Time Status Last (Trade) Ordered Route PRN Stop Time Admin Dose Reason Admin Sodium 1,000 ml @ Q1H STAT 12/04/18 DC 12/04/18 Chloride 1,000 mls/hr IV 11:28 12/04/18 12:35 12:27 Morphine 4 mg ONCE STAT 12/04/18 DC 12/04/18 Sulfate IV 11:28 12/04/18 12:34 (morphine) 11:30 Ondansetron 4 mg ONCE STAT 12/04/18 DC 12/04/18 HCl (Zofran IV 11:28 12/04/18 12:34 Inj) 11:30 Iohexol 150 ml STK-MED 12/04/18 DC (Omnipaque ONCE .ROUTE 12:44 12/04/18 300mg/ ml) 12:45 Sodium 100 ml @ ud STK-MED 12/04/18 DC Chloride ONCE .ROUTE 12:44 12/04/18 12:45 Piperacillin 100 ml @ ONCE ONCE 12/04/18 Sod/ 200 mls/hr IVPB 14:30 12/04/18 Tazobactam 14:59 Sod Procedures/MDM DIAGNOSTIC IMAGING REPORT Patient: IVETH LEON : 1955 Age: 63 Sex: F MR #: [id number] DOS: 12/04/18 1128 Ordering MD: ARUN MOORE PA-C Location: [facility] Room/Bed: PROCEDURE: CT soft tissue neck with contrast CLINICAL INDICATION: Right neck pain, swelling, difficulty swallowing TECHNIQUE: A CT of the soft tissues of the neck with contrast was performed on a multidetector CT scanner, with multiplanar reformats. 85 cc Omnipaque-300 intravenous contrast were administered. One or more of the following dose reduction techniques were used: Automated exposure control, adjustment in mA and / or kV according to patient size, use of iterative reconstructive technique. CTDI vol = 9 mGy and DLP = 197 mGy-cm. DICOM images are available. COMPARISON: 12/02/2018 FINDINGS: Calculi are redemonstrated in the proximal and distal right submandibular duct up to the orifice with persistent dilated duct which appears increased in size. The right submandibular gland remains relatively enlarged with similar enhancement. Adjacent soft tissue edema - stranding extending into the submental region and right sublingual space appears somewhat improved. There is increasing soft tissue fullness in the supraglottic - lower pharyngeal regions with interval mild to moderate narrowing of the airway at this level. No rim enhancing fluid collection suggest abscess is identified. Again, there are scattered small lymph nodes in the bilateral jugular chain - posterior cervical triangle regions, left and right, and bilateral submandibular - submental regions and upper mediastinum, not meeting size criteria but again nonspecific in appearance. Again the thyroid gland is absent with clips in the thyroid bed with stable hypodense nodule in the anterior upper infrahyoid neck which again may represent ectopic thyroid. Parapharyngeal spaces and retropharyngeal space are grossly clear. Right carotid atherosclerotic calcifications are again noted. The bilateral parotid, and left submandibular glands appear unremarkable. The imaged brasswind instrument repairer spaces are grossly symmetric. The imaged skull base is intact. The perivertebral space appears unremarkable. The imaged mastoids and paranasal sinuses are grossly clear. Osseous structures are intact. Lung apices are grossly clear. The osseous structures are intact. The lung apices are clear. IMPRESSION: 1. Persistent right submandibular duct calculi with increased dilated/obstructed duct, similar findings suggesting right submandibular sialadenitis, and somewhat improved adjacent cellulitis extending into the submental - right sublingual regions. 2. Increasing soft tissue fullness at the supraglottic - lower pharyngeal regions which may be inflammatory in nature, with interval mild to moderate narrowing of the airway at these levels. Consider correlation with direct visualization. 3. No abscess identified. 4. Nonspecific bilateral cervical - upper mediastinal lymph nodes not meeting size criteria, without significant change. 5. Status post thyroidectomy. 6. 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 ER course: 1 L normal saline given in ED. Zosyn given ED. Morphine and Zofran given in the ED. MDM: 63-year-old female presenting with airway compression and irritation and pain with swallowing. Patient CT scan shows cellulitis extending into areas causing compression of the airway. Given patient is symptomatic she will be admitted for IV antibiotics. Patient has been able unable to tolerate p.o. antibiotics outpatient. Dr. Giordano, ENT on-call was consulted and given there is no abscess formation and there is no need for ENT consultation or drainage. Patient will be admitted and admission orders were assisted by Dr. Tavarez. Patient was stable at the time of admission. LASHAWN MOORE PA-C December 04, 2018 14:30
[2018-12-04] MEDS ORDERED: WARF5TAB PO (16:24)
[2018-12-04] MEDS ORDERED: LEVO125T7 PO (16:27)
[2018-12-04] MEDS ORDERED: WARF2TAB PO (16:27)
[2018-12-04] MEDS ORDERED: DILT240C98 PO (16:28)
[2018-12-04] MEDS ORDERED: POTA10TA37 PO (16:29)
[2018-12-04] MEDS ORDERED: HYDR50TA3 PO (16:29)
[2018-12-04] MEDS ORDERED: HYDROmorphONE 2 MG/ML SYG IV STA (16:54)
[2018-12-04] MEDS ORDERED: HYDROCODONE/APAP (5/325) TAB PO PRN (17:30)
[2018-12-04] MEDS ORDERED: DOCUSATE SODIUM 100 MG CAP PO PRN (17:30)
[2018-12-04] MEDS ORDERED: LORAZEPAM 2 MG INJ IV PRN (17:30)
[2018-12-04] MEDS ORDERED: ZOLPIDEM 5 MG TAB PO PRN (17:30)
[2018-12-04] MEDS ORDERED: IBUPROFEN 600 MG TAB PO PRN (17:30)
[2018-12-04] MEDS ORDERED: VANCOMYCIN IV PER PHARMACY XX SCH (17:30)
[2018-12-04] MEDS ORDERED: BISACODYL (EC) 5 MG TAB PO PRN (17:30)
[2018-12-04] MEDS ORDERED: NACL 0.9% 3 ML SYG IV SCH (17:30)
[2018-12-04] MEDS ORDERED: NA PHOSPHATE/BIPHOS 133 ML ENEMA PR PRN (17:30)
[2018-12-04] MEDS ORDERED: ONDANSETRON 4 MG INJ IV PRN (17:30)
--- NOTE | 2018-12-04 17:48 | HP ---
Date/Time of Note Date/Time of Note DATE: 12/04/18 TIME: 17:35 Assessment/Plan VTE Prophylaxis SCD applied (from Nsg): No SCD contraindicated: low risk/ambulating Pharmacological prophylaxis: warfarin tx Lines/Catheters IV Catheter Type (from Nrsg): Saline Lock Assessment/Plan Problems: (1) Submandibular sialoadenitis Status: Acute Comment: No abscess on CT so per ENT we should provide supportive care. (+) vanco/zosyn. (+) warm compresses. Will give dexamethasone 1 mg IV q8 x 24 hours to try to reduce upper airway edema and possibly improve swallowing. (2) Cellulitis, neck Status: Acute Comment: vanco/zosyn and monitor for improvement (3) Hypothyroidism Status: Chronic Comment: Cont. LT4 daily and check TSH (4) History of pulmonary embolism Status: Chronic Comment: warfarin per home regimen and monitor PT/INR (5) Hypercoagulable state Status: Chronic Comment: warfarin per home regimen and monitor PT/INR (6) Mild intermittent asthma, uncomplicated Status: Chronic Comment: albuterol prn (7) Hypertension Status: Chronic Comment: Cont. diltiazem and HCTZ. Cont. KCL for HCTZ replacement. Qualifiers: Hypertension type: essential hypertension Qualified Codes: I10 - Essential (primary) hypertension Result Diagram: 12/04/18 1207 12/04/18 1207 Results 24hrs Laboratory Tests Test 12/04/18 12:07 White Blood Count 14.8 #H Red Blood Count 5.01 Hemoglobin 13.3 Hematocrit 42.4 Mean Corpuscular Volume 84.6 Mean Corpuscular Hemoglobin 26.5 L Mean Corpuscular Hemoglobin Concent 31.4 L Red Cell Distribution Width 16.4 H Platelet Count 303 Mean Platelet Volume 9.7 Immature Granulocytes % 0.300 Neutrophils % 79.9 H Lymphocytes % 10.4 L Monocytes % 9.3 Eosinophils % 0.0 Basophils % 0.1 Nucleated Red Blood Cells % 0.0 Immature Granulocytes # 0.050 H Neutrophils # 11.8 H Lymphocytes # 1.5 Monocytes # 1.4 H Eosinophils # 0.0 Basophils # 0.0 Nucleated Red Blood Cells # 0.0 Urine Color STRAW Urine Clarity CLEAR Urine pH 7.0 Urine Specific [place] 1.012 Urine Ketones NEGATIVE Urine Nitrite NEGATIVE Urine Bilirubin NEGATIVE Urine Urobilinogen NEGATIVE Urine Leukocyte Esterase NEGATIVE Urine Hemoglobin NEGATIVE Urine Glucose NEGATIVE Urine Total Protein NEGATIVE Sodium Level 144 Potassium Level 3.6 Chloride Level 100 Carbon Dioxide Level 33 H Anion Gap 11 Blood Urea Nitrogen 24 H Creatinine 0.83 Est Glomerular Filtrat Rate mL/min > 60 Glucose Level 102 Calcium Level 9.4 Total Bilirubin 0.4 Direct Bilirubin 0.00 Indirect Bilirubin 0.4 Aspartate Amino Transf (AST/SGOT) 25 Alanine Aminotransferase (ALT/SGPT) 16 Alkaline Phosphatase 96 Total Protein 8.5 H Albumin 4.7 Globulin 3.80 H Albumin/Globulin Ratio 1.23 HPI/ROS Admit Date/Time Admit Date/Time 12/04/2018 @ 1730 Hx of Present Illness 63 y/o AA F w/ h/o PTC s/p thyroidectomy, pulmonary embolism, asthma, A-flutter and tachy-willy syndrome, s/p pacer, pulm. HTN, and HTN has been experiencing mild sialoadenitis recurrent over the last year. Has been managed conservatively by pt.'s ENT. However, 4 days ago developed severe pain and swelling of R neck. Came to [facility] and got Rx for augmentin. However, symptoms have worsened in the last 48 hours w/ development of thick, purulent secretions from the submandibular ducts and difficulty swallowing. Pt. unable to eat due to unable to swallow. B/c of this pt. came back to [facility]. CT scan shows sialoadenitis, adjacent cellulitis, and edema of the airway. ROS Constitutional: poor po Eyes: no complaints ENT: pain, discharge, sore throat Respiratory: no complaints Cardiovascular: no complaints Gastrointestinal: no complaints Genitourinary: no complaints Musculoskeletal: no complaints Neurologic: no complaints PMH/Family/Social Past Medical History Medical History: cancer (thyroid), hypertension, hypothyroid, other (pulmonary embolism, asthma, A-flutter and tachy-willy syndrome, s/p pacer, pulm. HTN) Medications Current Medications Diltiazem HCl (Cardizem Cd) 240 mg BID PO ; Start 12/04/18 at 21:00; Status UNV Hydrochlorothiazide (Hydrochlorothiazide) 50 mg DAILY PO ; Start 12/05/18 at 09:00; Status UNV Levothyroxine Sodium (Synthroid) 125 mcg BEFORE BREAKFAST PO ; Start 12/05/18 at 07:00; Status UNV Potassium Chloride (Klor-Con 10) 10 meq BID PO ; Start 12/04/18 at 21:00; Status UNV Warfarin Sodium (Coumadin) 5 mg DAILY@17 PO ; Start 12/05/18 at 17:00; Status UNV Warfarin Sodium (Coumadin) 2 mg MONWEDFRI PO ; Start 12/05/18 at 09:00; Status UNV Dextrose/Sodium Chloride 1,000 ml @ 80 mls/hr [id number] IV ; Start 12/04/18 at 17:07; Status UNV IV Flush (NS 3 ml) 3 ml PER PROTOCOL IV ; Start 12/04/18 at 17:30; Status UNV Lorazepam (Ativan) 0.5 mg Q6H PRN IV .ANXIETY; Start 12/04/18 at 17:30; Status UNV Ondansetron HCl (Zofran Inj) 4 mg Q6H PRN IV NAUSEA/VOMITING; Start 12/04/18 at 17:30; Status UNV Ibuprofen (Motrin) 600 mg Q6H PRN PO .PAIN 1-3 OR TEMP; Start 12/04/18 at 17:30; Status UNV Acetaminophen/ Hydrocodone Bitart ([place] (5/325)) 1 tab Q6H PRN PO .PAIN 4-6; Start 12/04/18 at 17:30; Status UNV Acetaminophen/ Hydrocodone Bitart ([place] (5/325)) 2 tab Q6H PRN PO .PAIN 7-10; Start 12/04/18 at 17:30; Status UNV Zolpidem Tartrate (Ambien) 5 mg QHS PRN PO .INSOMNIA; Start 12/04/18 at 17:30; Status UNV Docusate Sodium (Colace) 100 mg Q12H PRN PO .CONSTIPATION; Start 12/04/18 at 17:30; Status UNV Bisacodyl (Dulcolax) 5 mg DAILY PRN PO .CONSTIPATION; Start 12/04/18 at 17:30; Status UNV Sodium Biphosphate/ Sodium Phosphate (Fleet Enema) 133 ml DAILY PRN NV .CONSTIPATION; Start 12/04/18 at 17:30; Status UNV Piperacillin Sod/ Tazobactam Sod 100 ml @ 200 mls/hr Q8 IVPB ; Start 12/04/18 at 22:00; Status UNV Dexamethasone (Decadron) 1 mg Q8 IV ; Start 12/04/18 at 17:30; Stop 12/05/18 at 23:55; Status UNV Vancomycin HCl (Vanco Iv Per Pharmacy) VANCOMYCIN PER PHARMACY PER PROTOCOL XX ; Start 12/04/18 at 17:30; Status UNV Coded Allergies: Pentazocine Lactate (Verified Allergy, Unknown, HALLUCINATIONS, 12/04/18) Past Surgical History Past Surgical Hx: other (thyroidectomy x 2, CURLY, oophorectomy, pulmonary embolectomy) Family History Significant Family History: diabetes, vascular disease (stroke), other (pulmonary embolus) Social History , no children, works at [employer] Alcohol Use: rarely Smoking Status: Never smoker Drug Use: none Exam/Review of Systems Vital Signs Vitals VS - Last 72 Hours, by Label Date Temp Pulse Resp B/P (MAP) Pulse Ox O2 O2 Flow FiO2 Time Delivery Rate 12/04/18 60 17 133/78 100 Room Air 2.0 16:30 (96) Nasal Cannula 12/04/18 98.5 77 18 163/97 95 10:52 (119) Vital Signs Date Temp Pulse Resp B/P (MAP) Pulse Ox O2 O2 Flow FiO2 Time Delivery Rate 12/04/18 60 17 133/78 100 Room Air 2.0 16:30 (96) Nasal Cannula 12/04/18 98.5 10:52 Exam Constitutional: alert, oriented, other (obese) Psych: no complaints, nl mood/affect Eyes: nl conjunctiva, EOMI, nl lids, nl sclera, PERRL ENMT: nl external ears & nose, nl lips & teeth, mucosa pink and moist Neck: supple, other ((+) swelling, firm tenderness R submandibular region); No non-tender, No bruits, No masses, No thyromegaly Respiratory: clear to auscultation, normal air movement Cardiovascular: regular rate and rhythm, nl pulses, edema (trace BLE); No murmurs/extra sounds, No rub Gastrointestinal: soft, nl liver, spleen, non-tender, bowel sounds; No mass, No rebound or guarding Musculoskeletal: nl extremities to inspection Extremities: normal pulses, edema (trace BLE); No cyanosis, No clubbing 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
[2018-12-04] MEDS ORDERED: ALBUTEROL 0.083% (NEB) 2.5 MG/3 ML AMP HHN PRN (18:00)
[2018-12-04 19:05] VITALS: BP 139/73; PULSE 61
[2018-12-04 20:00] VITALS: Ht 149.9 cm; Wt 87.3 kg
[2018-12-04 20:27] VITALS: PULSE 60
[2018-12-04] MEDS: DEXTROSE 5%-0.45% NACL 1,000 ML IV SCH (20:37)
[2018-12-04] MEDS: DEXAMETHASONE 4 MG/ML 1 ML INJ IV SCH ×2 (20:57→21:01)
[2018-12-04] MEDS: POTASSIUM CHLORIDE (SR) 10 MEQ TAB PO SCH (20:57)
[2018-12-04] MEDS: DILTIAZEM (CD) 240 MG CAP PO SCH (20:58)
[2018-12-04] MEDS: PIPER-TAZO 3.375 GM IV (PMX) 100 ML IVPB SCH (21:16)
[2018-12-04] MEDS ORDERED: VANCOMYCIN HCL 1.5 GM in SOD CHLORIDE 0.9% 250 ML IVPB SCH (22:00)
[2018-12-05] VITALS (15 sets, daily range): BP systolic 114–145; BP diastolic 63–83; PULSE 60–91; RESP 18–22
[2018-12-05] MEDS: DEXTROSE 5%-0.45% NACL 1,000 ML IV SCH ×3 (05:37→17:24)
[2018-12-05] MEDS: LEVOTHYROXINE 125 MCG TAB PO SCH (06:24)
[2018-12-05] MEDS: PIPER-TAZO 3.375 GM IV (PMX) 100 ML IVPB SCH ×3 (06:26→21:39)
[2018-12-05] MEDS: DEXAMETHASONE 4 MG/ML 1 ML INJ IV SCH ×3 (06:26→21:39)
[2018-12-05] MEDS: HYDROCODONE/APAP (5/325) TAB PO PRN (06:30)
[2018-12-05] MEDS: POTASSIUM CHLORIDE (SR) 10 MEQ TAB PO SCH ×2 (08:17→20:16)
[2018-12-05] MEDS: DILTIAZEM (CD) 240 MG CAP PO SCH ×2 (08:18→20:15)
[2018-12-05] MEDS: HYDROCHLOROTHIAZIDE 25 MG TAB PO SCH (08:19)
[2018-12-05] MEDS ORDERED: HYDROCHLOROTHIAZIDE 50 MG TAB PO SCH (09:00)
[2018-12-05] MEDS: VANCOMYCIN 750 MG (PMX) 250 ML IVPB SCH (10:22)
--- NOTE | 2018-12-05 13:19 | PN ---
Date/Time of Note Date/Time of Note DATE: 12/05/18 TIME: 13:13 Assessment/Plan VTE Prophylaxis Risk score (from Ns)>0 risk: 7 SCD applied (from Ns): No SCD contraindicated: low risk/ambulating Pharmacological prophylaxis: warfarin tx Lines/Catheters IV [facility] [place] Assessment/Plan Problems: (1) Salivary duct obstruction Status: Acute Comment: Vanco/zosyn, warm compresses. Pt. to extract stones from duct if e xpressed. (2) Submandibular sialoadenitis Status: Acute Comment: Vanco/zosyn, warm compresses. Pt. to extract stones from duct if e xpressed. (3) Cellulitis, neck Status: Acute Comment: Cont. vanco/zosyn (4) Partial obstruction of airway Status: Acute Comment: Finishing 24 hours of dexamethasone. Asymptomatic. (5) Hypothyroidism Status: Chronic Comment: Cont. LT4. TSH P. (6) History of pulmonary embolism Status: Chronic (7) Hypercoagulable state Status: Chronic Comment: Warfarin below therapeutic range. Will monitor and decide if needs to increase. (8) Atrial flutter with rapid ventricular response Status: Chronic Comment: Cont. pacer, diltiazem, warfarin. (9) Hypertension Status: Chronic Comment: Cont. diltiazem, HCTZ w/ K replacement Qualifiers: Hypertension type: essential hypertension Qualified Codes: I10 - Essential (primary) hypertension (10) Sleep apnea in adult Status: Chronic Comment: CPAP O/N (11) Mild intermittent asthma, uncomplicated Status: Chronic Comment: Albuterol prn (12) Type 2 diabetes mellitus without complications Status: Chronic Comment: Discovered A1c 6.9%. Will start accu-checks qac/qhs. Pt. disinclined to take meds at this time. Rec. low-carb diet. Qualifiers: Diabetes mellitus terminal manager insulin use: without usp use Qualified Codes: E11.9 - Type 2 diabetes mellitus without complications Result Diagram: 12/05/18 0640 12/05/18 0640 Results 24hrs Laboratory Tests Test 12/05/18 06:40 12/05/18 08:27 White Blood Count 10.1 # Red Blood Count 4.86 Hemoglobin 13.1 Hematocrit 42.7 Mean Corpuscular Volume 87.9 Mean Corpuscular Hemoglobin 27.0 L Mean Corpuscular Hemoglobin Concent 30.7 L Red Cell Distribution Width 16.7 H Platelet Count 223 # Mean Platelet Volume 11.0 H Immature Granulocytes % 0.300 Neutrophils % 79.0 H Segmented Neutrophils % (Manual) 78 H Band Neutrophils % (Manual) 5 H Lymphocytes % 10.5 L Lymphocytes % (Manual) 8 L Monocytes % 9.7 Monocytes % (Manual) 8 Eosinophils % 0.2 Basophils % 0.3 Basophils % (Manual) 1 Nucleated Red Blood Cells % 0.0 Immature Granulocytes # 0.030 Neutrophils # 8.0 H Neutrophils # (Manual) 7.9 H Band Neutrophils # 0.5 Lymphocytes (Manual) 0.8 Lymphocytes # 1.1 Monocytes # 1.0 H Monocytes # (Manual) 0.8 Eosinophils # 0.0 Basophils # 0.0 Basophils # (Manual) 0.1 H Nucleated Red Blood Cells # 0.0 Platelet Estimate NORMAL Platelet Morphology Comment @See below Polychromasia 3+ Poikilocytosis 2+ Ovalocytes 1+ Prothrombin Time 20.7 H Prothrombin Time Ratio 1.6 INR International Normalized Ratio 1.77 Activated Partial Thromboplast Time 32.8 Sodium Level 143 Potassium Level 3.9 Chloride Level 103 Carbon Dioxide Level 32 H Anion Gap 8 Blood Urea Nitrogen 13 # Creatinine 0.63 Est Glomerular Filtrat Rate mL/min > 60 Glucose Level 133 Calcium Level 8.7 Thyroid Stimulating Hormone (TSH) Pending Hemoglobin A1c 6.9 H Subjective 24 Hr Interval Summary Constitutional: no complaints, improved ENT: pain, dysphagia Respiratory: no complaints Cardiovascular: no complaints Gastrointestinal: no complaints Genitourinary: no complaints Musculoskeletal: no complaints Neurologic: no complaints Exam/Review of Systems Exam Vitals VS - Last 72 Hours, by Label Date Temp Pulse Resp B/P (MAP) Pulse Ox O2 O2 Flow FiO2 Time Delivery Rate 12/05/18 60 12:47 12/05/18 97.0 62 22 114/70 96 Room Air 11:56 (85) 12/05/18 60 08:16 12/05/18 97.9 61 22 135/69 94 08:00 (91) 12/05/18 74 95 21 05:12 12/05/18 98.3 61 18 127/63 95 Nasal 04:30 (84) Cannula 12/05/18 60 04:05 12/05/18 95 2.0 27 02:13 12/05/18 72 95 21 01:30 12/05/18 61 00:12 12/05/18 98.6 91 18 117/71 93 BIPAP 00:00 (86) Nasal Cannula 12/04/18 95 2.0 27 21:00 12/04/18 60 20:27 12/04/18 99.2 61 139/73 94 19:05 (95) 12/04/18 60 17 133/78 100 Room Air 2.0 16:30 (96) Nasal Cannula 12/04/18 98.5 77 18 163/97 95 10:52 (119) Vital Signs Date Temp Pulse Resp B/P (MAP) Pulse Ox O2 O2 Flow FiO2 Time Delivery Rate 12/05/18 60 12:47 12/05/18 97.0 22 114/70 96 Room Air 11:56 (85) 12/05/18 21 05:12 12/05/18 2.0 02:13 Intake and Output 12/04/18 12/04/18 12/05/18 1515:00 23:00 07:00 IntakeIntake Total 1100 ml BalanceBalance 1100 ml Constitutional: alert, oriented, obese Neck: supple; No non-tender ((+) tender mass R submandibular region), No bruits, No masses, No thyromegaly Respiratory: clear to auscultation, normal air movement Cardiovascular: regular rate and rhythm, nl pulses, edema (1+ BLE); No murmurs/extra sounds, No rub Gastrointestinal: soft, nl liver, spleen, non-tender, bowel sounds; No mass, No rebound or guarding Musculoskeletal: nl extremities to inspection Extremities: normal pulses, edema (1+ BLE); No cyanosis, No clubbing Neurological: EMAIL MARKETING MANAGER 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, nl mental status, nl speech, nl strength Results Results 24hrs Laboratory Tests Test 12/05/18 06:40 12/05/18 08:27 White Blood Count 10.1 # Red Blood Count 4.86 Hemoglobin 13.1 Hematocrit 42.7 Mean Corpuscular Volume 87.9 Mean Corpuscular Hemoglobin 27.0 L Mean Corpuscular Hemoglobin Concent 30.7 L Red Cell Distribution Width 16.7 H Platelet Count 223 # Mean Platelet Volume 11.0 H Immature Granulocytes % 0.300 Neutrophils % 79.0 H Segmented Neutrophils % (Manual) 78 H Band Neutrophils % (Manual) 5 H Lymphocytes % 10.5 L Lymphocytes % (Manual) 8 L Monocytes % 9.7 Monocytes % (Manual) 8 Eosinophils % 0.2 Basophils % 0.3 Basophils % (Manual) 1 Nucleated Red Blood Cells % 0.0 Immature Granulocytes # 0.030 Neutrophils # 8.0 H Neutrophils # (Manual) 7.9 H Band Neutrophils # 0.5 Lymphocytes (Manual) 0.8 Lymphocytes # 1.1 Monocytes # 1.0 H Monocytes # (Manual) 0.8 Eosinophils # 0.0 Basophils # 0.0 Basophils # (Manual) 0.1 H Nucleated Red Blood Cells # 0.0 Platelet Estimate NORMAL Platelet Morphology Comment @See below Polychromasia 3+ Poikilocytosis 2+ Ovalocytes 1+ Prothrombin Time 20.7 H Prothrombin Time Ratio 1.6 INR International Normalized Ratio 1.77 Activated Partial Thromboplast Time 32.8 Sodium Level 143 Potassium Level 3.9 Chloride Level 103 Carbon Dioxide Level 32 H Anion Gap 8 Blood Urea Nitrogen 13 # Creatinine 0.63 Est Glomerular Filtrat Rate mL/min > 60 Glucose Level 133 Calcium Level 8.7 Thyroid Stimulating Hormone (TSH) Pending Hemoglobin A1c 6.9 H Medications Medication Current Medications Diltiazem HCl (Cardizem Cd) 240 mg BID PO Last administered on 12/05/18at 08:18; Admin Dose 240 MG; Start 12/04/18 at 21:00 Levothyroxine Sodium (Synthroid) 125 mcg BEFORE BREAKFAST PO Last administered on 12/05/18at 06:24; Admin Dose 125 MCG; Start 12/05/18 at 07:00 Potassium Chloride (Klor-Con 10) 10 meq BID PO Last administered on 12/05/18at 08:17; Admin Dose 10 MEQ; Start 12/04/18 at 21:00 Warfarin Sodium (Coumadin) 5 mg DAILY@17 PO ; Start 12/05/18 at 17:00 Warfarin Sodium (Coumadin) 2 mg MoWeFr@1700 PO ; Start 12/05/18 at 17:00 Dextrose/Sodium Chloride 1,000 ml @ 80 mls/hr [id number] IV Last administered on 12/04/18at 20:37; Admin Dose 80 MLS/HR; Start 12/04/18 at 17:07 IV Flush (NS 3 ml) 3 ml PER PROTOCOL IV ; Start 12/04/18 at 17:30 Lorazepam (Ativan) 0.5 mg Q6H PRN IV .ANXIETY; Start 12/04/18 at 17:30 Ondansetron HCl (Zofran Inj) 4 mg Q6H PRN IV NAUSEA/VOMITING; Start 12/04/18 at 17:30 Ibuprofen (Motrin) 600 mg Q6H PRN PO .PAIN 1-3 OR TEMP; Start 12/04/18 at 17:30 Acetaminophen/ Hydrocodone Bitart ([place] (5/325)) 1 tab Q6H PRN PO .PAIN 4-6 Last administered on 12/05/18at 06:30; Admin Dose 1 TAB; Start 12/04/18 at 17:30 Acetaminophen/ Hydrocodone Bitart ([place] (5/325)) 2 tab Q6H PRN PO .PAIN 7-10; Start 12/04/18 at 17:30 Zolpidem Tartrate (Ambien) 5 mg QHS PRN PO .INSOMNIA; Start 12/04/18 at 17:30 Docusate Sodium (Colace) 100 mg Q12H PRN PO .CONSTIPATION; Start 12/04/18 at 17:30 Bisacodyl (Dulcolax) 5 mg DAILY PRN PO .CONSTIPATION; Start 12/04/18 at 17:30 Sodium Biphosphate/ Sodium Phosphate (Fleet Enema) 133 ml DAILY PRN [place] .CONSTIPATION; Start 12/04/18 at 17:30 Piperacillin Sod/ Tazobactam Sod 100 ml @ 200 mls/hr Q8 IVPB Last administered on 12/05/18at 06:26; Admin Dose 200 MLS/HR; Start 12/04/18 at 22:00 Dexamethasone (Decadron) 1 mg Q8 IV Last administered on 12/05/18at 06:26; Admin Dose 1 MG; Start 12/04/18 at 17:30; Stop 12/05/18 at 23:55 Vancomycin HCl (Vanco Iv Per Pharmacy) VANCOMYCIN PER PHARMACY PER PROTOCOL XX ; Start 12/04/18 at 17:30 Albuterol (Proventil 0.083% (Neb)) 2.5 mg Q4H RESP THERAPY PRN HHN SHORTNESS OF BREATH; Start 12/04/18 at 18:00 Hydrochlorothiazide (Hydrochlorothiazide) 50 mg DAILY PO Last administered on 12/05/18at 08:19; Admin Dose 50 MG; Start 12/05/18 at 09:00 Vancomycin/Sodium Chloride 250 ml @ 125 mls/hr Q12H IVPB Last administered on 12/05/18at 10:22; Admin Dose 125 MLS/HR; Start 12/05/18 at 11:00 AYLEEN CROWLEY MD December 05, 2018 13:19
[2018-12-05] MEDS: ACCU-CHEK XX SCH ×2 (17:24→20:16)
[2018-12-05] MEDS: WARFARIN 2 MG TAB PO SCH (17:24)
[2018-12-05] MEDS: WARFARIN 5 MG TAB PO SCH (17:24)
[2018-12-06] VITALS (12 sets, daily range): BP systolic 117–159; BP diastolic 64–90; PULSE 60–89; RESP 18–19
[2018-12-06] MEDS: VANCOMYCIN 750 MG (PMX) 250 ML IVPB SCH ×2 (00:29→11:57)
[2018-12-06] MEDS: DEXTROSE 5%-0.45% NACL 1,000 ML IV SCH ×2 (05:18→21:22)
[2018-12-06] MEDS: LEVOTHYROXINE 125 MCG TAB PO SCH (05:18)
[2018-12-06] MEDS: PIPER-TAZO 3.375 GM IV (PMX) 100 ML IVPB SCH ×3 (05:18→20:59)
[2018-12-06] MEDS: ACCU-CHEK XX SCH ×5 (07:25→21:00)
[2018-12-06] MEDS: HYDROCODONE/APAP (5/325) TAB PO PRN ×2 (08:10→15:11)
[2018-12-06] MEDS: HYDROCHLOROTHIAZIDE 25 MG TAB PO SCH (09:00)
[2018-12-06] MEDS: POTASSIUM CHLORIDE (SR) 10 MEQ TAB PO SCH ×2 (09:00→20:57)
[2018-12-06] MEDS: DILTIAZEM (CD) 240 MG CAP PO SCH ×2 (09:00→20:58)
[2018-12-06] MEDS: WARFARIN 5 MG TAB PO SCH (16:46)
--- NOTE | 2018-12-06 18:03 | PN ---
Date/Time of Note Date/Time of Note DATE: 12/06/18 TIME: 17:56 Assessment/Plan VTE Prophylaxis Risk score (from Ns)>0 risk: 1 SCD applied (from Ns): No SCD contraindicated: low risk/ambulating Pharmacological prophylaxis: warfarin tx Lines/Catheters IV Catheter Type (from [place]): Peripheral IV Assessment/Plan Problems: (1) Salivary duct obstruction Status: Acute Comment: Cont. warm compresses, vanco and zosyn. If no improvement tomorrow will repeat imaging. (2) Partial obstruction of airway Status: Resolved Comment: s/p dexamethasone (3) Submandibular sialoadenitis Status: Acute Comment: Cont. warm compresses, vanco and zosyn. If no improvement tomorrow will repeat imaging. (4) Cellulitis, neck Status: Acute Comment: Improving. Cont. vanco/zosyn. (5) Type 2 diabetes mellitus without complications Status: Chronic Comment: Fair glycemic control but hyperglycemic yesterday on dexamethasone. Now d/c'ed but BG still in upper end of goal range. Could benefit from metformin but will monitor 1 more day. Qualifiers: Diabetes mellitus terminal manager insulin use: without long-term use Qualified Codes: E11.9 - Type 2 diabetes mellitus without complications (6) Hypothyroidism Status: Chronic Comment: Cont. LT4 (7) History of pulmonary embolism Status: Chronic Comment: Still subtherapeutic on warfarin but INR increasing. Will recheck tomorrow. If not heading towards goal range will increase dose. (8) Hypercoagulable state Status: Chronic Comment: Still subtherapeutic on warfarin but INR increasing. Will recheck tomorrow. If not heading towards goal range will increase dose. (9) Mild intermittent asthma, uncomplicated Status: Chronic Comment: Albuterol prn (10) Atrial flutter with rapid ventricular response Status: Chronic Comment: Rate controlled. Cont. diltiazem (11) Hypertension Status: Chronic Comment: Good control. Cont. diltiazem and HCTZ. Qualifiers: Hypertension type: essential hypertension Qualified Codes: I10 - Essential (primary) hypertension Result Diagram: 12/06/18 0738 12/06/18 0738 Results 24hrs Laboratory Tests Test 12/06/18 07:38 12/06/18 08:00 12/06/18 10:31 12/06/18 11:30 White Blood Count 12.9 #H Red Blood Count 4.82 Hemoglobin 13.0 Hematocrit 40.8 Mean Corpuscular Volume 84.6 Mean Corpuscular 27.0 L Hemoglobin Mean Corpuscular 31.9 L Hemoglobin Concent Red Cell Distribution 15.9 H Width Platelet Count 309 # Mean Platelet Volume 9.9 Immature Granulocytes % 0.500 H Neutrophils % 86.8 H Lymphocytes % 6.8 L Monocytes % 5.8 Eosinophils % 0.0 Basophils % 0.1 Nucleated Red Blood 0.0 Cells % Immature Granulocytes # 0.070 H Neutrophils # 11.2 H Lymphocytes # 0.9 Monocytes # 0.8 Eosinophils # 0.0 Basophils # 0.0 Nucleated Red Blood 0.0 Cells # Prothrombin Time 21.3 H Prothrombin Time Ratio 1.7 INR International 1.84 Normalized Ratio Sodium Level 143 Potassium Level 3.7 Chloride Level 105 Carbon Dioxide Level 30 Anion Gap 8 Blood Urea Nitrogen 15 Creatinine 0.66 Est Glomerular Filtrat > 60 Rate mL/min Glucose Level 150 Calcium Level 9.0 Bedside Glucose 157 170 Vancomycin Level Trough 6.3 L Subjective 24 Hr Interval Summary Constitutional: no complaints, improved ENT: pain (improved but not at baseline), dysphagia (improved but not at baseline), other (pt. was able to express and extract stone from her salivary duct but thinks there are more inside) Respiratory: no complaints Cardiovascular: no complaints Gastrointestinal: constipation Genitourinary: no complaints Musculoskeletal: no complaints Neurologic: no complaints Exam/Review of Systems Exam Vitals VS - Last 72 Hours, by Label Date Temp Pulse Resp B/P (MAP) Pulse Ox O2 O2 Flow FiO2 Time Delivery Rate 12/06/18 61 16:07 12/06/18 97.7 61 18 127/77 98 Room Air 15:50 (94) 12/06/18 62 12:34 12/06/18 98.1 89 18 159/86 98 11:39 (110) 12/06/18 62 08:36 12/06/18 98.2 79 18 123/79 98 Room Air 07:26 (94) 12/06/18 98.1 60 19 117/64 97 04:43 (81) 12/06/18 60 04:10 12/06/18 2.0 03:06 12/06/18 60 00:20 12/05/18 98.2 60 19 125/65 96 23:56 (85) 12/05/18 2.0 22:24 12/05/18 60 20:06 12/05/18 98.2 60 19 125/77 96 20:03 (93) 12/05/18 2.0 16:34 12/05/18 60 16:30 12/05/18 97.5 62 22 145/83 99 Room Air 15:47 (103) 12/05/18 60 12:47 12/05/18 97.0 62 22 114/70 96 Room Air 11:56 (85) 12/05/18 60 08:16 12/05/18 97.9 61 22 135/69 94 08:00 (91) 12/05/18 74 95 21 05:12 12/05/18 98.3 61 18 127/63 95 Nasal 04:30 (84) Cannula 12/05/18 60 04:05 12/05/18 95 2.0 27 02:13 12/05/18 72 95 21 01:30 12/05/18 61 00:12 12/05/18 98.6 91 18 117/71 93 BIPAP 00:00 (86) Nasal Cannula 12/04/18 95 2.0 27 21:00 12/04/18 60 20:27 12/04/18 99.2 61 139/73 94 19:05 (95) 12/04/18 60 17 133/78 100 Room Air 2.0 16:30 (96) Nasal Cannula 12/04/18 98.5 77 18 163/97 95 10:52 (119) VS - Last 72 Hours, by Label Date Temp Pulse Resp B/P (MAP) Pulse Ox O2 O2 Flow FiO2 Time Delivery Rate 12/06/18 61 16:07 12/06/18 97.7 61 18 127/77 98 Room Air 15:50 (94) 12/06/18 62 12:34 12/06/18 98.1 89 18 159/86 98 11:39 (110) 12/06/18 62 08:36 12/06/18 98.2 79 18 123/79 98 Room Air 07:26 (94) 12/06/18 98.1 60 19 117/64 97 04:43 (81) 12/06/18 60 04:10 12/06/18 2.0 03:06 12/06/18 60 00:20 12/05/18 98.2 60 19 125/65 96 23:56 (85) 12/05/18 2.0 22:24 12/05/18 60 20:06 12/05/18 98.2 60 19 125/77 96 20:03 (93) 12/05/18 2.0 16:34 12/05/18 60 16:30 12/05/18 97.5 62 22 145/83 99 Room Air 15:47 (103) 12/05/18 60 12:47 12/05/18 97.0 62 22 114/70 96 Room Air 11:56 (85) 12/05/18 60 08:16 12/05/18 97.9 61 22 135/69 94 08:00 (91) 12/05/18 74 95 21 05:12 12/05/18 98.3 61 18 127/63 95 Nasal 04:30 (84) Cannula 12/05/18 60 04:05 12/05/18 95 2.0 27 02:13 12/05/18 72 95 21 01:30 12/05/18 61 00:12 12/05/18 98.6 91 18 117/71 93 BIPAP 00:00 (86) Nasal Cannula 12/04/18 95 2.0 27 21:00 12/04/18 60 20:27 12/04/18 99.2 61 139/73 94 19:05 (95) 12/04/18 60 17 133/78 100 Room Air 2.0 16:30 (96) Nasal Cannula 12/04/18 98.5 77 18 163/97 95 10:52 (119) Vital Signs Date Temp Pulse Resp B/P (MAP) Pulse Ox O2 O2 Flow FiO2 Time Delivery Rate 12/06/18 61 16:07 12/06/18 97.7 18 127/77 98 Room Air 15:50 (94) 12/06/18 2.0 03:06 12/05/18 21 05:12 Intake and Output 12/05/18 12/05/18 12/06/18 1414:59 22:59 06:59 IntakeIntake Total 500 ml 950 ml 500 ml OutputOutput Total 1800 ml 800 ml BalanceBalance 500 ml -850 ml -300 ml Constitutional: alert, oriented, obese Psych: no complaints, nl mood/affect Neck: other (tender mass R submandibular region; softer and smaller than yesterday) Respiratory: clear to auscultation, normal air movement Cardiovascular: regular rate and rhythm, nl pulses, edema (trace BLE); No murmurs/extra sounds, No rub Gastrointestinal: soft, nl liver, spleen, non-tender, bowel sounds; No mass, No rebound or guarding Musculoskeletal: nl extremities to inspection Extremities: normal pulses, edema (trace BLE); No cyanosis, No clubbing Neurological: 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 CONVERTER OPERATOR 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, nl mental status, nl speech, nl strength Additional Comments Bedside Glucose - 72 Hours Test 12/05/18 17:19 12/06/18 08:00 12/06/18 11:30 Bedside Glucose 247 mg/dL (70-220) H 157 mg/dL (70-220) 170 mg/dL (70-220) Results Results 24hrs Laboratory Tests Test 12/06/18 07:38 12/06/18 08:00 12/06/18 10:31 12/06/18 11:30 White Blood Count 12.9 #H Red Blood Count 4.82 Hemoglobin 13.0 Hematocrit 40.8 Mean Corpuscular Volume 84.6 Mean Corpuscular 27.0 L Hemoglobin Mean Corpuscular 31.9 L Hemoglobin Concent Red Cell Distribution 15.9 H Width Platelet Count 309 # Mean Platelet Volume 9.9 Immature Granulocytes % 0.500 H Neutrophils % 86.8 H Lymphocytes % 6.8 L Monocytes % 5.8 Eosinophils % 0.0 Basophils % 0.1 Nucleated Red Blood 0.0 Cells % Immature Granulocytes # 0.070 H Neutrophils # 11.2 H Lymphocytes # 0.9 Monocytes # 0.8 Eosinophils # 0.0 Basophils # 0.0 Nucleated Red Blood 0.0 Cells # Prothrombin Time 21.3 H Prothrombin Time Ratio 1.7 INR International 1.84 Normalized Ratio Sodium Level 143 Potassium Level 3.7 Chloride Level 105 Carbon Dioxide Level 30 Anion Gap 8 Blood Urea Nitrogen 15 Creatinine 0.66 Est Glomerular Filtrat > 60 Rate mL/min Glucose Level 150 Calcium Level 9.0 Bedside Glucose 157 170 Vancomycin Level Trough 6.3 L Medications Medication Current Medications Diltiazem HCl (Cardizem Cd) 240 mg BID PO Last administered on 12/06/18at 09:00; Admin Dose 240 MG; Start 12/04/18 at 21:00 Levothyroxine Sodium (Synthroid) 125 mcg BEFORE BREAKFAST PO Last administered on 12/06/18 05:18; Admin Dose 125 MCG; Start 12/05/18 at 07:00 Potassium Chloride (Klor-Con 10) 10 meq BID PO Last administered on 12/06/18at 09:00; Admin Dose 10 MEQ; Start 12/04/18 at 21:00 Warfarin Sodium (Coumadin) 5 mg DAILY@17 PO Last administered on 12/06/18at 16:46; Admin Dose 5 MG; Start 12/05/18 at 17:00 Warfarin Sodium (Coumadin) 2 mg MoWeFr@1700 PO Last administered on 12/05/18 17:24; Admin Dose 2 MG; Start 12/05/18 at 17:00 Dextrose/Sodium Chloride 1,000 ml @ 80 mls/hr [id number] IV Last administered on 12/06/18 05:18; Admin Dose 80 MLS/HR; Start 12/04/18 at 17:07 IV Flush (NS 3 ml) 3 ml PER PROTOCOL IV ; Start 12/04/18 at 17:30 Lorazepam (Ativan) 0.5 mg Q6H PRN IV .ANXIETY; Start 12/04/18 at 17:30 Ondansetron HCl (Zofran Inj) 4 mg Q6H PRN IV NAUSEA/VOMITING; Start 12/04/18 at 17:30 Ibuprofen (Motrin) 600 mg Q6H PRN PO .PAIN 1-3 OR TEMP; Start 12/04/18 at 17:30 Acetaminophen/ Hydrocodone Bitart ([place] (5/325)) 1 tab Q6H PRN PO .PAIN 4-6 Last administered on 12/06/18at 15:11; Admin Dose 1 TAB; Start 12/04/18 at 17:30 Acetaminophen/ Hydrocodone Bitart ([place] (5/325)) 2 tab Q6H PRN PO .PAIN 7-10; Start 12/04/18 at 17:30 Zolpidem Tartrate (Ambien) 5 mg QHS PRN PO .INSOMNIA; Start 12/04/18 at 17:30 Docusate Sodium (Colace) 100 mg Q12H PRN PO .CONSTIPATION; Start 12/04/18 at 17:30 Bisacodyl (Dulcolax) 5 mg DAILY PRN PO .CONSTIPATION; Start 12/04/18 at 17:30 Sodium Biphosphate/ Sodium Phosphate (Fleet Enema) 133 ml DAILY PRN [place] .CONSTIPATION; Start 12/04/18 at 17:30 Piperacillin Sod/ Tazobactam Sod 100 ml @ 200 mls/hr Q8 IVPB Last administered on 12/06/18at 15:13; Admin Dose 200 MLS/HR; Start 12/04/18 at 22:00 Vancomycin HCl (Vanco Iv Per Pharmacy) VANCOMYCIN PER PHARMACY PER PROTOCOL XX ; Start 12/04/18 at 17:30 Albuterol (Proventil 0.083% (Neb)) 2.5 mg Q4H RESP THERAPY PRN HHN SHORTNESS OF BREATH; Start 12/04/18 at 18:00 Hydrochlorothiazide (Hydrochlorothiazide) 50 mg DAILY PO Last administered on 12/06/18at 09:00; Admin Dose 50 MG; Start 12/05/18 at 09:00 Diagnostic Test (Pha) (Accu-Chek) 1 ea AC MEALS AND BEDTIME XX Last administered on 12/06/18at 11:30; Admin Dose 1 EA; Start 12/05/18 at 17:25 Vancomycin HCl 1.25 gm/Sodium Chloride 250 ml @ 83.333 mls/ hr Q12H IVPB ; Start 12/06/18 at 23:00 AYLEEN CROWLEY MD December 06, 2018 18:02
[2018-12-06] MEDS: DOCUSATE SODIUM 100 MG CAP PO SCH (20:59)
[2018-12-07] VITALS (10 sets, daily range): BP systolic 116–134; BP diastolic 64–87; PULSE 58–77; RESP 18–19
[2018-12-07] MEDS: VANCOMYCIN HCL 1.25 GM in SOD CHLORIDE 0.9% 250 ML IVPB SCH ×2 (00:10→11:33)
[2018-12-07] MEDS: LEVOTHYROXINE 125 MCG TAB PO SCH (05:26)
[2018-12-07] MEDS: PIPER-TAZO 3.375 GM IV (PMX) 100 ML IVPB SCH ×3 (05:26→22:35)
[2018-12-07] MEDS: DEXTROSE 5%-0.45% NACL 1,000 ML IV SCH ×2 (07:37→16:01)
[2018-12-07] MEDS: ACCU-CHEK XX SCH ×4 (08:17→21:00)
[2018-12-07] MEDS: HYDROCHLOROTHIAZIDE 25 MG TAB PO SCH (08:18)
[2018-12-07] MEDS: DILTIAZEM (CD) 240 MG CAP PO SCH ×2 (08:19→20:51)
[2018-12-07] MEDS: POTASSIUM CHLORIDE (SR) 10 MEQ TAB PO SCH ×2 (08:19→20:51)
[2018-12-07] MEDS: DOCUSATE SODIUM 100 MG CAP PO SCH ×2 (08:19→20:51)
[2018-12-07] MEDS ORDERED: SOD CHLORIDE 0.9% 100 ML ONE (13:02)
[2018-12-07] MEDS ORDERED: IOHEXOL 300MG/ML 150 ML BTL ONE (13:02)
--- NOTE | 2018-12-07 17:29 | PN ---
Date/Time of Note Date/Time of Note DATE: 12/07/18 TIME: 17:23 Assessment/Plan VTE Prophylaxis Risk score (from Ns)>0 risk: 7 SCD applied (from Ns): No SCD contraindicated: low risk/ambulating Pharmacological prophylaxis: warfarin tx Lines/Catheters IV C[facility]ter Type ([facility]): Peripheral IV Assessment/Plan Problems: (1) Salivary duct obstruction Status: Acute Comment: Recheck CT neck today. Cont. zosyn/vanco and warm compresses. Improving slowly but not back to baseline. (2) Submandibular sialoadenitis Status: Acute Comment: Recheck CT neck today. Cont. zosyn/vanco and warm compresses. Improving slowly but not back to baseline. (3) Cellulitis, neck Status: Acute Comment: Cont. zosyn/vanco. (4) Type 2 diabetes mellitus without complications Status: Chronic Comment: Good glycemic control on no therapy. D/c IV dextrose and monitor glucose values. Qualifiers: Diabetes mellitus terminal clerk insulin use: without usp use Qualified Codes: E11.9 - Type 2 diabetes mellitus without complications (5) Hypertension Status: Chronic Comment: Well-controlled. Cont. HCTZ and diltiazem Qualifiers: Hypertension type: essential hypertension Qualified Codes: I10 - Essential (primary) hypertension (6) Hypothyroidism Status: Chronic Comment: Cont. LT4 daily (7) History of pulmonary embolism Status: Chronic Comment: Therapeutic anticoagulation. Cont. current warfarin regimen and monitor. (8) Hypercoagulable state Status: Chronic Comment: Therapeutic anticoagulation. Cont. current warfarin regimen and monitor. (9) Atrial flutter with rapid ventricular response Status: Chronic Comment: Therapeutic anticoagulation. Cont. current warfarin regimen and monitor. Rate controlled. Cont. diltiazem (10) Mild intermittent asthma, uncomplicated Status: Chronic Comment: Albuterol prn (11) Sleep apnea in adult Status: Chronic Comment: CPAP O/N Result Diagram: 12/07/1862612/07/18626 Results 24hrs Laboratory Tests Test 12/06/18 22:35 12/07/18 06:27 12/07/18 08:16 12/07/18 11:39 Bedside Glucose 135 138 111 White Blood Count 13.1 H Red Blood Count 4.92 Hemoglobin 13.3 Hematocrit 41.5 Mean Corpuscular 84.3 Volume Mean Corpuscular 27.0 L Hemoglobin Mean Corpuscular 32.0 Hemoglobin Concent Red Cell Distribution 16.0 H Width Platelet Count 340 Mean Platelet Volume 10.3 Immature Granulocytes 0.700 H % Neutrophils % 81.8 H Lymphocytes % 10.0 L Monocytes % 7.3 Eosinophils % 0.1 Basophils % 0.1 Nucleated Red Blood 0.0 Cells % Immature Granulocytes 0.090 H # Neutrophils # 10.7 H Lymphocytes # 1.3 Monocytes # 1.0 H Eosinophils # 0.0 Basophils # 0.0 Nucleated Red Blood 0.0 Cells # Prothrombin Time 22.9 H Prothrombin Time 1.8 Ratio INR International 2.02 Normalized Ratio Sodium Level 142 Potassium Level 4.0 Chloride Level 103 Carbon Dioxide Level 32 H Anion Gap 7 Blood Urea Nitrogen 19 Creatinine 0.83 Est Glomerular > 60 Filtrat Rate mL/min Glucose Level 131 Calcium Level 8.8 Subjective 24 Hr Interval Summary ENT: pain, sore throat; No dysphagia Respiratory: no complaints Cardiovascular: no complaints Gastrointestinal: no complaints Genitourinary: no complaints Musculoskeletal: no complaints Neurologic: no complaints Exam/Review of Systems Exam Vitals VS - Last 72 Hours, by Label Date Temp Pulse Resp B/P (MAP) Pulse Ox O2 O2 Flow FiO2 Time Delivery Rate 12/07/18 60 16:21 12/07/18 98.6 77 19 125/81 98 15:22 (96) 12/07/18 60 13:18 12/07/18 98.5 58 18 130/83 95 11:37 (99) 12/07/18 2.0 10:16 12/07/18 60 08:51 12/07/18 98.6 61 18 125/75 99 07:19 (92) 12/07/18 2.0 05:33 12/07/18 60 04:04 12/07/18 98.2 60 19 116/64 98 03:51 (81) 12/06/18 2.0 23:55 12/06/18 98.3 64 19 142/90 98 23:48 (107) 12/06/18 60 20:00 12/06/18 98.1 60 18 138/83 98 19:54 (101) 12/06/18 61 16:07 12/06/18 97.7 61 18 127/77 98 Room Air 15:50 (94) 12/06/18 62 12:34 12/06/18 98.1 89 18 159/86 98 11:39 (110) 12/06/18 62 08:36 12/06/18 98.2 79 18 123/79 98 Room Air 07:26 (94) 12/06/18 98.1 60 19 117/64 97 04:43 (81) 12/06/18 60 04:10 12/06/18 2.0 03:06 12/06/18 60 00:20 12/05/18 98.2 60 19 125/65 96 23:56 (85) 12/05/18 2.0 22:24 12/05/18 60 20:06 12/05/18 98.2 60 19 125/77 96 20:03 (93) 12/05/18 2.0 16:34 12/05/18 60 16:30 12/05/18 97.5 62 22 145/83 99 Room Air 15:47 (103) 12/05/18 60 12:47 12/05/18 97.0 62 22 114/70 96 Room Air 11:56 (85) 12/05/18 60 08:16 12/05/18 97.9 61 22 135/69 94 08:00 (91) 12/05/18 74 95 21 05:12 12/05/18 98.3 61 18 127/63 95 Nasal 04:30 (84) Cannula 12/05/18 60 04:05 12/05/18 95 2.0 27 02:13 12/05/18 72 95 21 01:30 12/05/18 61 00:12 12/05/18 98.6 91 18 117/71 93 BIPAP 00:00 (86) Nasal Cannula 12/04/18 95 2.0 27 21:00 12/04/18 60 20:27 12/04/18 99.2 61 139/73 94 19:05 (95) Vital Signs Date Temp Pulse Resp B/P (MAP) Pulse Ox O2 O2 Flow FiO2 Time Delivery Rate 12/07/18 60 16:21 12/07/18 98.6 19 125/81 98 15:22 (96) 12/07/18 2.0 10:16 12/06/18 Room Air 15:50 12/05/18 21 05:12 Intake and Output 12/06/18 12/06/18 12/07/18 1515:00 23:00 07:00 IntakeIntake Total 1000 ml 1549.99 ml BalanceBalance 1000 ml 1549.99 ml Constitutional: alert, oriented, obese Psych: no complaints, nl mood/affect Neck: other ((+) firm, swollen mass R submandibular region); No non-tender Respiratory: clear to auscultation, normal air movement Cardiovascular: regular rate and rhythm, nl pulses; No edema, No murmurs/extra sounds, No rub Gastrointestinal: soft, nl liver, spleen, non-tender, bowel sounds; No mass, No rebound or guarding Musculoskeletal: nl extremities to inspection, nl gait and stance Extremities: normal pulses; No cyanosis, No clubbing, No edema 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, nl mental status, nl speech, nl strength Additional Comments Bedside Glucose - 72 Hours Test 12/05/18 17:19 12/06/18 08:00 12/06/18 11:30 12/06/18 22:35 Bedside 247 157 170 135 Glucose mg/dL (70-220) mg/dL (70-220) mg/dL (70-220) mg/dL (70-220) H Test 12/07/18 08:16 12/07/18 11:39 Bedside 138 111 Glucose mg/dL (70-220) mg/dL (70-220) Results Results 24hrs Laboratory Tests Test 12/06/18 22:35 12/07/18 06:27 12/07/18 08:16 12/07/18 11:39 Bedside Glucose 135 138 111 White Blood Count 13.1 H Red Blood Count 4.92 Hemoglobin 13.3 Hematocrit 41.5 Mean Corpuscular 84.3 Volume Mean Corpuscular 27.0 L Hemoglobin Mean Corpuscular 32.0 Hemoglobin Concent Red Cell Distribution 16.0 H Width Platelet Count 340 Mean Platelet Volume 10.3 Immature Granulocytes 0.700 H % Neutrophils % 81.8 H Lymphocytes % 10.0 L Monocytes % 7.3 Eosinophils % 0.1 Basophils % 0.1 Nucleated Red Blood 0.0 Cells % Immature Granulocytes 0.090 H # Neutrophils # 10.7 H Lymphocytes # 1.3 Monocytes # 1.0 H Eosinophils # 0.0 Basophils # 0.0 Nucleated Red Blood 0.0 Cells # Prothrombin Time 22.9 H Prothrombin Time 1.8 Ratio INR International 2.02 Normalized Ratio Sodium Level 142 Potassium Level 4.0 Chloride Level 103 Carbon Dioxide Level 32 H Anion Gap 7 Blood Urea Nitrogen 19 Creatinine 0.83 Est Glomerular > 60 Filtrat Rate mL/min Glucose Level 131 Calcium Level 8.8 Medications Medication Current Medications Diltiazem HCl (Cardizem Cd) 240 mg BID PO Last administered on 12/07/18 08:19; Admin Dose 240 MG; Start 12/04/18 at 21:00 Levothyroxine Sodium (Synthroid) 125 mcg BEFORE BREAKFAST PO Last administered on 12/07/18at 05:26; Admin Dose 125 MCG; Start 12/05/18 at 07:00 Potassium Chloride (Klor-Con 10) 10 meq BID PO Last administered on 12/07/18 08:19; Admin Dose 10 MEQ; Start 12/04/18 at 21:00 Warfarin Sodium (Coumadin) 5 mg DAILY@17 PO Last administered on 12/06/18at 16:46; Admin Dose 5 MG; Start 12/05/18 at 17:00 Warfarin Sodium (Coumadin) 2 mg MoWeFr@1700 PO Last administered on 12/05/18at 17:24; Admin Dose 2 MG; Start 12/05/18 at 17:00 IV Flush (NS 3 ml) 3 ml PER PROTOCOL IV ; Start 12/04/18 at 17:30 Lorazepam (Ativan) 0.5 mg Q6H PRN IV .ANXIETY; Start 12/04/18 at 17:30 Ondansetron HCl (Zofran Inj) 4 mg Q6H PRN IV NAUSEA/VOMITING; Start 12/04/18 at 17:30 Ibuprofen (Motrin) 600 mg Q6H PRN PO .PAIN 1-3 OR TEMP; Start 12/04/18 at 17:30 Acetaminophen/ Hydrocodone Bitart ([place] (5/325)) 1 tab Q6H PRN PO .PAIN 4-6 Last administered on 12/06/18at 15:11; Admin Dose 1 TAB; Start 12/04/18 at 17:30 Acetaminophen/ Hydrocodone Bitart ([place] (5/325)) 2 tab Q6H PRN PO .PAIN 7-10; Start 12/04/18 at 17:30 Zolpidem Tartrate (Ambien) 5 mg QHS PRN PO .INSOMNIA; Start 12/04/18 at 17:30 Docusate Sodium (Colace) 100 mg Q12H PRN PO .CONSTIPATION; Start 12/04/18 at 17:30 Bisacodyl (Dulcolax) 5 mg DAILY PRN PO .CONSTIPATION; Start 12/04/18 at 17:30 Sodium Biphosphate/ Sodium Phosphate (Fleet Enema) 133 ml DAILY PRN [place] .CONSTIPATION; Start 12/04/18 at 17:30 Piperacillin Sod/ Tazobactam Sod 100 ml @ 200 mls/hr Q8 IVPB Last administered on 12/07/18at 16:03; Admin Dose 200 MLS/HR; Start 12/04/18 at 22:00 Vancomycin HCl (Vanco Iv Per Pharmacy) VANCOMYCIN PER PHARMACY PER PROTOCOL XX ; Start 12/04/18 at 17:30 Albuterol (Proventil 0.083% (Neb)) 2.5 mg Q4H RESP THERAPY PRN HHN SHORTNESS OF BREATH; Start 12/04/18 at 18:00 Hydrochlorothiazide (Hydrochlorothiazide) 50 mg DAILY PO Last administered on 12/07/18at 08:18; Admin Dose 50 MG; Start 12/05/18 at 09:00 Diagnostic Test (Pha) (Accu-Chek) 1 ea AC MEALS AND BEDTIME XX Last administered on 12/07/18at 11:33; Admin Dose 1 EA; Start 12/05/18 at 17:25 Vancomycin HCl 1.25 gm/Sodium Chloride 250 ml @ 83.333 mls/ hr Q12H IVPB Last administered on 12/07/18at 11:33; Admin Dose 83.333 MLS/HR; Start 12/06/18 at 23:00 Docusate Sodium (Colace) 100 mg BID PO Last administered on 12/07/18 08:19; Admin Dose 100 MG; Start 12/06/18 at 21:00 Miscellaneous Information (*Rx Drug Level Order Reminder*) VANCO TROUGH @ 1,000 ON... 1000 ONCE XX ; Start 12/08/18 at 10:00; Stop 12/08/18 at 10:01 AYLEEN CROWLEY MD December 07, 2018 17:29
[2018-12-07] MEDS: WARFARIN 2 MG TAB PO SCH (18:37)
[2018-12-07] MEDS: WARFARIN 5 MG TAB PO SCH (18:37)
[2018-12-08] VITALS (12 sets, daily range): BP systolic 101–147; BP diastolic 50–81; PULSE 58–70; RESP 16–18
[2018-12-08] MEDS: VANCOMYCIN HCL 1.25 GM in SOD CHLORIDE 0.9% 250 ML IVPB SCH ×2 (01:23→14:19)
[2018-12-08] MEDS: PIPER-TAZO 3.375 GM IV (PMX) 100 ML IVPB SCH ×3 (06:04→21:41)
[2018-12-08] MEDS: LEVOTHYROXINE 125 MCG TAB PO SCH (06:10)
[2018-12-08] MEDS: ACCU-CHEK XX SCH ×4 (07:38→21:00)
[2018-12-08] MEDS: DOCUSATE SODIUM 100 MG CAP PO SCH ×2 (08:30→21:41)
[2018-12-08] MEDS: POTASSIUM CHLORIDE (SR) 10 MEQ TAB PO SCH ×2 (08:31→21:41)
[2018-12-08] MEDS: DILTIAZEM (CD) 240 MG CAP PO SCH ×2 (08:31→21:00)
[2018-12-08] MEDS: HYDROCHLOROTHIAZIDE 25 MG TAB PO SCH (08:31)
[2018-12-08] MEDS: WARFARIN 5 MG TAB PO SCH (17:19)
--- NOTE | 2018-12-08 18:29 | PN ---
Date/Time of Note Date/Time of Note DATE: 12/08/18 TIME: 18:27 Assessment/Plan VTE Prophylaxis Risk score (from Ns)>0 risk: 7 SCD applied (from Ns): No SCD contraindicated: other Pharmacological prophylaxis: warfarin tx Lines/Catheters IV C[facility]ter Type (from [facility]): Peripheral IV Assessment/Plan Hospital Course Salivary duct obstruction and Submandibular sialoadenitis -continue vancomycin and zosyn -improving clinically with slight purulent discharge -pain control T2DM -diet controlled -FS at target range -continue to check FS Hypothyroidism -continue levothyroxine 125mcg po daily PE -continue warfarin -check PT/INR in AM Atrial fibrillation -continue warfarin and diltiazem HTN -continue HCTZ and diltiazem Result Diagram: 12/08/18 0608 12/07/18 0627 Results 24hrs Laboratory Tests Test 12/07/18 18:35 12/07/18 21:34 12/08/18 06:08 12/08/18 07:37 Bedside Glucose 176 117 115 White Blood Count 9.6 # Red Blood Count 5.33 Hemoglobin 14.2 Hematocrit 44.7 Mean Corpuscular 83.9 Volume Mean Corpuscular 26.6 L Hemoglobin Mean Corpuscular 31.8 L Hemoglobin Concent Red Cell 16.1 H Distribution Width Platelet Count 312 Mean Platelet Volume 10.3 Immature 0.600 H Granulocytes % Neutrophils % 63.5 Segmented 55 Neutrophils % (Manual) Band Neutrophils % 2 (Manual) Lymphocytes % 25.6 Lymphocytes % 31 (Manual) Monocytes % 9.3 Monocytes % (Manual) 11 Eosinophils % 0.7 Eosinophils % 1 (Manual) Basophils % 0.3 Nucleated Red Blood 0.0 Cells % Immature 0.060 H Granulocytes # Neutrophils # 6.1 Neutrophils # 5.3 (Manual) Band Neutrophils # 0.1 Lymphocytes (Manual) 2.9 Lymphocytes # 2.5 Monocytes # 0.9 Monocytes # (Manual) 1.0 H Eosinophils # 0.1 Basophils # 0.0 Nucleated Red Blood 0.0 Cells # Platelet Estimate NORMAL Giant Platelets 1 H Polychromasia 3+ Poikilocytosis 1+ Anisocytosis 2+ Macrocytosis 2+ Test 12/08/18 10:38 12/08/18 11:24 12/08/18 17:18 Prothrombin Time 22.0 H Prothrombin Time 1.7 Ratio INR International 1.91 Normalized Ratio Vancomycin Level 15.7 Trough Bedside Glucose 112 109 Subjective 24 Hr Interval Summary Free Text/Dictation Patient seen and examined at bedside, c/p purulent drainage in mouth. Denied fever or chills. Exam/Review of Systems Exam Vitals Vital Signs Date Temp Pulse Resp B/P (MAP) Pulse Ox O2 O2 Flow FiO2 Time Delivery Rate 12/08/18 60 16:33 12/08/18 98.3 18 126/70 99 15:04 (88) 12/08/18 2.0 13:49 12/06/18 Room Air 15:50 12/05/18 21 05:12 Intake and Output 12/07/18 12/07/18 12/08/18 1515:00 23:00 07:00 IntakeIntake Total 750 ml 880 ml OutputOutput Total 1700 ml BalanceBalance 750 ml -820 ml Exam General: Comfortable in appearance, not in acute distress. Skin appropriate for ethnicity Eye: Extraocular movements are intact, Normal conjunctiva. HENT: Normocephalic, atraumatic. Respiratory: Respirations are non-labored, Breath sounds are equal, Symmetrical chest wall expansion. Cardiovascular: S1, S2. No murmur. No LE edema Gastrointestinal: Soft, Non-tender, Non-distended, Normal bowel sounds. Integumentary: Warm to touch. Neurologic: Alert, Oriented. Cognition and Speech: Speech clear and coherent, Functional cognition intact. Psychiatric: Cooperative, Appropriate mood & affect. Results Results 24hrs Laboratory Tests Test 12/07/18 18:35 12/07/18 21:34 12/08/18 06:08 12/08/18 07:37 Bedside Glucose 176 117 115 White Blood Count 9.6 # Red Blood Count 5.33 Hemoglobin 14.2 Hematocrit 44.7 Mean Corpuscular 83.9 Volume Mean Corpuscular 26.6 L Hemoglobin Mean Corpuscular 31.8 L Hemoglobin Concent Red Cell 16.1 H Distribution Width Platelet Count 312 Mean Platelet Volume 10.3 Immature 0.600 H Granulocytes % Neutrophils % 63.5 Segmented 55 Neutrophils % (Manual) Band Neutrophils % 2 (Manual) Lymphocytes % 25.6 Lymphocytes % 31 (Manual) Monocytes % 9.3 Monocytes % (Manual) 11 Eosinophils % 0.7 Eosinophils % 1 (Manual) Basophils % 0.3 Nucleated Red Blood 0.0 Cells % Immature 0.060 H Granulocytes # Neutrophils # 6.1 Neutrophils # 5.3 (Manual) Band Neutrophils # 0.1 Lymphocytes (Manual) 2.9 Lymphocytes # 2.5 Monocytes # 0.9 Monocytes # (Manual) 1.0 H Eosinophils # 0.1 Basophils # 0.0 Nucleated Red Blood 0.0 Cells # Platelet Estimate NORMAL Giant Platelets 1 H Polychromasia 3+ Poikilocytosis 1+ Anisocytosis 2+ Macrocytosis 2+ Test 12/08/18 10:38 12/08/18 11:24 12/08/18 17:18 Prothrombin Time 22.0 H Prothrombin Time 1.7 Ratio INR International 1.91 Normalized Ratio Vancomycin Level 15.7 Trough Bedside Glucose 112 109 Medications Medication Current Medications Diltiazem HCl (Cardizem Cd) 240 mg BID PO Last administered on 12/08/18at 08:31; Admin Dose 240 MG; Start 12/04/18 at 21:00 Levothyroxine Sodium (Synthroid) 125 mcg BEFORE BREAKFAST PO Last administered on 12/08/18at 06:10; Admin Dose 125 MCG; Start 12/05/18 at 07:00 Potassium Chloride (Klor-Con 10) 10 meq BID PO Last administered on 12/08/18 08:31; Admin Dose 10 MEQ; Start 12/04/18 at 21:00 Warfarin Sodium (Coumadin) 5 mg DAILY@17 PO Last administered on 12/08/18at 17:19; Admin Dose 5 MG; Start 12/05/18 at 17:00 Warfarin Sodium (Coumadin) 2 mg MoWeFr@1700 PO Last administered on 12/07/18at 18:37; Admin Dose 2 MG; Start 12/05/18 at 17:00 IV Flush (NS 3 ml) 3 ml PER PROTOCOL IV ; Start 12/04/18 at 17:30 Lorazepam (Ativan) 0.5 mg Q6H PRN IV .ANXIETY; Start 12/04/18 at 17:30 Ondansetron HCl (Zofran Inj) 4 mg Q6H PRN IV NAUSEA/VOMITING; Start 12/04/18 at 17:30 Ibuprofen (Motrin) 600 mg Q6H PRN PO .PAIN 1-3 OR TEMP; Start 12/04/18 at 17:30 Acetaminophen/ Hydrocodone Bitart ([place] (5/325)) 1 tab Q6H PRN PO .PAIN 4-6 Last administered on 12/06/18at 15:11; Admin Dose 1 TAB; Start 12/04/18 at 17:30 Acetaminophen/ Hydrocodone Bitart ([place] (5/325)) 2 tab Q6H PRN PO .PAIN 7-10; Start 12/04/18 at 17:30 Zolpidem Tartrate (Ambien) 5 mg QHS PRN PO .INSOMNIA; Start 12/04/18 at 17:30 Docusate Sodium (Colace) 100 mg Q12H PRN PO .CONSTIPATION; Start 12/04/18 at 17:30 Bisacodyl (Dulcolax) 5 mg DAILY PRN PO .CONSTIPATION; Start 12/04/18 at 17:30 Sodium Biphosphate/ Sodium Phosphate (Fleet Enema) 133 ml DAILY PRN [place] .CON STIPATION; Start 12/04/18 at 17:30 Piperacillin Sod/ Tazobactam Sod 100 ml @ 200 mls/hr Q8 IVPB Last administered on 12/08/18at 13:23; Admin Dose 200 MLS/HR; Start 12/04/18 at 22:00 Vancomycin HCl (Vanco Iv Per Pharmacy) VANCOMYCIN PER PHARMACY PER PROTOCOL XX ; Start 12/04/18 at 17:30 Albuterol (Proventil 0.083% (Neb)) 2.5 mg Q4H RESP THERAPY PRN HHN SHORTNESS OF BREATH; Start 12/04/18 at 18:00 Hydrochlorothiazide (Hydrochlorothiazide) 50 mg DAILY PO Last administered on 12/08/18at 08:31; Admin Dose 50 MG; Start 12/05/18 at 09:00 Diagnostic Test (Pha) (Accu-Chek) 1 ea AC MEALS AND BEDTIME XX Last administered on 12/08/18at 17:19; Admin Dose 1 EA; Start 12/05/18 at 17:25 Docusate Sodium (Colace) 100 mg BID PO Last administered on 12/08/18at 08:30; Admin Dose 100 MG; Start 12/06/18 at 21:00 Vancomycin HCl 1.25 gm/Sodium Chloride 250 ml @ 83.333 mls/ hr Q12H IVPB ; Start 12/09/18 at 02:00 BARBIE ARCHIBALD MD December 08, 2018 18:29
[2018-12-09] VITALS (11 sets, daily range): BP systolic 115–140; BP diastolic 67–81; PULSE 60–64; RESP 18–20
[2018-12-09] MEDS: VANCOMYCIN HCL 1.25 GM in SOD CHLORIDE 0.9% 250 ML IVPB SCH ×2 (02:19→13:12)
[2018-12-09] MEDS: LEVOTHYROXINE 125 MCG TAB PO SCH (05:19)
[2018-12-09] MEDS: PIPER-TAZO 3.375 GM IV (PMX) 100 ML IVPB SCH ×3 (05:19→23:10)
[2018-12-09] MEDS: ACCU-CHEK XX SCH ×4 (08:02→21:00)
[2018-12-09] MEDS: HYDROCHLOROTHIAZIDE 25 MG TAB PO SCH (08:29)
[2018-12-09] MEDS: POTASSIUM CHLORIDE (SR) 10 MEQ TAB PO SCH ×2 (08:29→20:17)
[2018-12-09] MEDS: DILTIAZEM (CD) 240 MG CAP PO SCH ×2 (08:30→20:18)
[2018-12-09] MEDS: DOCUSATE SODIUM 100 MG CAP PO SCH ×2 (08:30→20:17)
--- NOTE | 2018-12-09 16:42 | PN ---
Date/Time of Note Date/Time of Note DATE: 12/09/18 TIME: 16:39 Assessment/Plan VTE Prophylaxis Risk score (from Ns)>0 risk: 7 SCD applied (from Ns): No SCD contraindicated: other Pharmacological prophylaxis: warfarin tx Lines/Catheters IV Catheter Type (from Nrsg): Peripheral IV Assessment/Plan Hospital Course Salivary duct obstruction and Submandibular sialoadenitis -continue vancomycin and zosyn -improving clinically with slight purulent discharge -pain control T2DM -diet controlled -FS at target range -continue to check FS Hypothyroidism -continue levothyroxine 125mcg po daily PE -continue warfarin -INR therapeutic at 2 today Atrial fibrillation -continue warfarin and diltiazem HTN -continue HCTZ and diltiazem Result Diagram: 12/08/18 0608 12/07/18 0627 Results 24hrs Laboratory Tests Test 12/08/18 17:18 12/08/18 21:53 12/09/18 06:43 12/09/18 08:02 Bedside Glucose 109 121 103 Prothrombin Time 22.8 H Prothrombin Time 1.8 Ratio INR International 2.00 Normalized Ratio Subjective 24 Hr Interval Summary Free Text/Dictation Patient seen and examined at bedside. Still has purulent discharge in mouth, but denied pain. Exam/Review of Systems Exam Vitals Vital Signs Date Temp Pulse Resp B/P (MAP) Pulse Ox O2 O2 Flow FiO2 Time Delivery Rate 12/09/18 97.5 62 18 115/70 99 15:12 (85) 12/09/18 2.0 01:40 12/06/18 Room Air 15:50 Intake and Output 12/08/18 12/08/18 12/09/18 1515:00 23:00 07:00 IntakeIntake Total 500 ml 450 ml OutputOutput Total 2530 ml 900 ml BalanceBalance -2030 ml -450 ml Exam General: Comfortable in appearance, not in acute distress. Skin appropriate for ethnicity Eye: Extraocular movements are intact, Normal conjunctiva. HENT: Normocephalic, atraumatic. Mobile nontender nodule below right jaw Respiratory: Respirations are non-labored, Breath sounds are equal, Symmetrical chest wall expansion. Cardiovascular: S1, S2. No murmur. No LE edema Gastrointestinal: Soft, Non-tender, Non-distended, Normal bowel sounds. Integumentary: Warm to touch. Neurologic: Alert, Oriented. Cognition and Speech: Speech clear and coherent, Functional cognition intact. Psychiatric: Cooperative, Appropriate mood & affect. Results Results 24hrs Laboratory Tests Test 12/08/18 17:18 12/08/18 21:53 12/09/18 06:43 12/09/18 08:02 Bedside Glucose 109 121 103 Prothrombin Time 22.8 H Prothrombin Time 1.8 Ratio INR International 2.00 Normalized Ratio Medications Medication Current Medications Diltiazem HCl (Cardizem Cd) 240 mg BID PO Last administered on 12/09/18 08:30; Admin Dose 240 MG; Start 12/04/18 at 21:00 Levothyroxine Sodium (Synthroid) 125 mcg BEFORE BREAKFAST PO Last administered on 12/09/18 05:19; Admin Dose 125 MCG; Start 12/05/18 at 07:00 Potassium Chloride (Klor-Con 10) 10 meq BID PO Last administered on 12/09/18 08:29; Admin Dose 10 MEQ; Start 12/04/18 at 21:00 Warfarin Sodium (Coumadin) 5 mg DAILY@17 PO Last administered on 12/08/18at 17:19; Admin Dose 5 MG; Start 12/05/18 at 17:00 Warfarin Sodium (Coumadin) 2 mg MoWeFr@1700 PO Last administered on 12/07/18at 18:37; Admin Dose 2 MG; Start 12/05/18 at 17:00 IV Flush (NS 3 ml) 3 ml PER PROTOCOL IV ; Start 12/04/18 at 17:30 Lorazepam (Ativan) 0.5 mg Q6H PRN IV .ANXIETY; Start 12/04/18 at 17:30 Ondansetron HCl (Zofran Inj) 4 mg Q6H PRN IV NAUSEA/VOMITING; Start 12/04/18 at 17:30 Ibuprofen (Motrin) 600 mg Q6H PRN PO .PAIN 1-3 OR TEMP; Start 12/04/18 at 17:30 Acetaminophen/ Hydrocodone Bitart ([place] (5/325)) 1 tab Q6H PRN PO .PAIN 4-6 Last administered on 12/06/18at 15:11; Admin Dose 1 TAB; Start 12/04/18 at 17:30 Acetaminophen/ Hydrocodone Bitart ([place] (5/325)) 2 tab Q6H PRN PO .PAIN 7-10; Start 12/04/18 at 17:30 Zolpidem Tartrate (Ambien) 5 mg QHS PRN PO .INSOMNIA; Start 12/04/18 at 17:30 Docusate Sodium (Colace) 100 mg Q12H PRN PO .CONSTIPATION; Start 12/04/18 at 17:30 Bisacodyl (Dulcolax) 5 mg DAILY PRN PO .CONSTIPATION; Start 12/04/18 at 17:30 Sodium Biphosphate/ Sodium Phosphate (Fleet Enema) 133 ml DAILY PRN [place] .CONSTIPATION; Start 12/04/18 at 17:30 Piperacillin Sod/ Tazobactam Sod 100 ml @ 200 mls/hr Q8 IVPB Last administered on 12/09/18 13:11; Admin Dose 200 MLS/HR; Start 12/04/18 at 22:00 Vancomycin HCl (Vanco Iv Per Pharmacy) VANCOMYCIN PER PHARMACY PER PROTOCOL XX ; Start 12/04/18 at 17:30 Albuterol (Proventil 0.083% (Neb)) 2.5 mg Q4H RESP THERAPY PRN HHN SHORTNESS OF BREATH; Start 12/04/18 at 18:00 Hydrochlorothiazide (Hydrochlorothiazide) 50 mg DAILY PO Last administered on 12/09/18 08:29; Admin Dose 50 MG; Start 12/05/18 at 09:00 Diagnostic Test (Pha) (Accu-Chek) 1 ea AC MEALS AND BEDTIME XX Last administered on 12/09/18 08:02; Admin Dose 1 EA; Start 12/05/18 at 17:25 Docusate Sodium (Colace) 100 mg BID PO Last administered on 12/08/18at 21:41; Admin Dose 100 MG; Start 12/06/18 at 21:00 Vancomycin HCl 1.25 gm/Sodium Chloride 250 ml @ 83.333 mls/ hr Q12H IVPB Last administered on 12/09/18 13:12; Admin Dose 83.333 MLS/HR; Start 12/09/18 at 02:00 BARBIE ARCHIBALD MD December 09, 2018 16:42
[2018-12-09] MEDS: WARFARIN 5 MG TAB PO SCH (17:55)
[2018-12-10] VITALS (10 sets, daily range): BP systolic 112–119; BP diastolic 61–79; PULSE 60–85; RESP 18–20
[2018-12-10] MEDS: VANCOMYCIN HCL 1.25 GM in SOD CHLORIDE 0.9% 250 ML IVPB SCH ×2 (02:22→14:06)
[2018-12-10] MEDS: PIPER-TAZO 3.375 GM IV (PMX) 100 ML IVPB SCH ×2 (06:12→13:00)
[2018-12-10] MEDS: LEVOTHYROXINE 125 MCG TAB PO SCH (06:12)
[2018-12-10] MEDS: ACCU-CHEK XX SCH ×3 (07:25→16:38)
[2018-12-10] MEDS: HYDROCHLOROTHIAZIDE 25 MG TAB PO SCH (08:16)
[2018-12-10] MEDS: POTASSIUM CHLORIDE (SR) 10 MEQ TAB PO SCH (08:16)
[2018-12-10] MEDS: DILTIAZEM (CD) 240 MG CAP PO SCH (08:16)
[2018-12-10] MEDS: DOCUSATE SODIUM 100 MG CAP PO SCH (08:17)
--- NOTE | 2018-12-10 13:46 | PDOCDIS ---
Discharge Instructions DIAGNOSIS Discharge Diagnosis Submandibular sialadenitis CONDITION [id number] Patient Condition: [id number] Good HOME CARE INSTRUCTIONS: [id number] Diet Instructions: [id number] low-carb ACTIVITY: [id number] Activity Restrictions: [id number] No Restrictions [id number] Bathing Restrictions: [id number] Shower FOLLOW UP/APPOINTMENTS Follow-up Plan f/u w/ Dr. Giordano 1-[address] Murillo 2-4 weeks AYLEEN CROWLEY MD December 10, 2018 13:46
[2018-12-10] MEDS ORDERED: AMOX1TAB10 PO (13:47)
--- NOTE | 2018-12-10 13:53 | DS ---
Date/Time of Note Date/Time of Note DATE: 12/10/18 TIME: 13:48 Discharge Summary Admission/Discharge Info Admit Date/Time December 04, 2018 at 15:09 Discharge Date/Time 12/10/18 @ 1500 Discharge Diagnosis Submandibular sialadenitis Patient Condition: Good Consults none Procedures CT soft tissues neck 12/04/18: 1. Persistent right submandibular duct calculi with increased dilated/obstructed duct, similar findings suggesting right submandibular sialadenitis, and somewhat improved adjacent cellulitis extending into the submental - right sublingual regions. 2. Increasing soft tissue fu llness at the supraglottic - lower pharyngeal regions which may be inflammatory in nature, with interval mild to moderate narrowing of the airway at these levels. Consider correlation with direct visualization. 3. No abscess identified. 4. Nonspecific bilateral cervical - upper mediastinal lymph nodes not meeting size criteria, without significant change. 5. Status post thyro idectomy. 6. 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 CT soft tissues neck 12/07/18: 1. Near complete resolution of right submandibular duct dilatation with persistent 2 calculi in the proximal and distal right submandibular duct. One of the two calculi near the orifice is no longer visualized. 2. Improved inflammatory changes surr ounding the right submandibular gland. No soft tissue abscess. Hx of Present Illness 63 y/o AA F w/ h/o PTC s/p thyroidectomy, pulmonary embolism, asthma, A-flutter and tachy-willy syndrome, s/p pacer, pulm. HTN, and HTN has been experiencing mild sialoadenitis recurrent over the last year. Has been managed conservatively by pt.'s ENT. However, 4 days ago developed severe pain and swelling of R neck. Came to [facility] and got Rx for augmentin. However, symptoms have worsened in the last 48 hours w/ development of thick, purulent secretions from the submandibular ducts and difficulty swallowing. Pt. unable to eat due to unable to swallow. B/c of this pt. came back to [facility]. CT scan shows sialoadenitis, adjacent cellulitis, and edema of the airway. Hospital Course Pt. placed on IV zosyn and vancomycin and given warm compresses of her neck. Mass/swelling improved dramatically. Pt. was able to express stone from her submandibular salivary duct. CT shows resolution of her cellulitis and most of sialadenitis w/ some persistent calculi formation. Pt. ready for d/c home on augmentin to finish course initially started by ENT. Pt. found to have A1c 6.9% and advised on diet control at this time. Home Meds Reported Medications Hydrochlorothiazide* (Hydrochlorothiazide*) 50 Mg Tab, 50 MG PO DAILY, #30 TAB 12/04/18 Potassium Chloride* (K-Dur*) 10 Meq Tab.prt.sr, 10 MEQ PO BID, TAB 12/04/18 Diltiazem Hcl* (Diltiazem XT) 240 Mg Capsule.er, 240 MG PO BID, #30 CAP 12/04/18 Levothyroxine Sodium* (Levothyroxine Sodium*) 125 Mcg Tablet, 125 MCG PO BEFORE BREAKFAST, #30 TAB 12/04/18 Warfarin Sodium* (Coumadin*) 2 Mg Tablet, 7 MG PO Q MON,WED,FRI, TAB TAKE 2MG+5MG=7MG Q MON,WED,FRI 12/04/18 Warfarin Sodium* (Coumadin*) 5 Mg Tablet, 5 MG PO Q TUES,THUR,SAT,SUN, TAB 12/04/18 Discontinued Reported Medications Warfarin Sodium* (Coumadin*) 2 Mg Tablet, 7.5 MG PO MONWEDFRI, TAB 04/21/18 Warfarin Sodium* (Coumadin*) 5 Mg Tablet, 5 MG PO TUE,THUR,SAT,SUN, TAB 08/01/17 Levothyroxine Sodium* (Levoxyl*) 100 Mcg Tablet, 100 MCG PO BEFORE BREAKFAST, #30 TAB 01/04/17 Discontinued Scripts Oxycodone Hcl* (IR) (Oxycodone Hcl*) 5 Mg Capsule, 5 MG PO Q6 PRN for PAIN, #10 TAB Prov:СВЕТЛАНА REED MD 12/02/18 Ibuprofen* (Motrin*) 600 Mg Tab, 600 MG PO Q6H PRN for PAIN AND OR ELEVATED TEM P, #30 TAB Prov:СВЕТЛАНА REED MD 12/02/18 Amoxicillin/Potassium Clav (Amox-Clav 875-125 mg Tablet) 875-125 mg Tab, 1 TAB PO BID for 10 Days, #20 TAB Prov:СВЕТЛАНА REED MD 12/02/18 Levalbuterol* (Xopenex* HFA) 15 Gm Inha, 1-2 PUFF INH Q4 PRN for SHORTNESS OF BREATH, #1 EA Prov:VAIBHAV ALANIS 10/25/18 Prednisone* (Prednisone*) 20 Mg Tab, 40 MG PO DAILY for asthma for 4 Days, TAB Prov:VAIBHAV ALANIS 10/25/18 Diltiazem Hcl* (Cardizem CD*) 120 Mg Cap.sr.24h, 240 MG PO b.i.d, #30 CAP Prov:HASMUKH MUIRLLO MD 07/04/18 Tramadol HCl (Tramadol HCl) 50 Mg Tablet, 50 MG PO Q6H PRN for MODERATE PAIN LEVEL 4-6 for 10 Days, #30 TAB 0 Refills Prov:AYLEEN CROWLEY MD 05/06/18 Follow-up Plan f/u w/ Dr. Giordano 1-[address] Murillo 2-4 weeks Primary Care Provider Hasmukh Murillo MD Time spent on discharge: > 30 minutes Pending Labs Laboratory Tests Test 12/10/18 06:49 Blood Urea Nitrogen 22 mg/dl (7-20) Creatinine 0.87 mg/dl (0.44-1.00) AYLEEN CROWLEY MD December 10, 2018 13:53
[2018-12-10] MEDS: WARFARIN 2 MG TAB PO SCH (16:37)
[2018-12-10] MEDS: WARFARIN 5 MG TAB PO SCH (16:38)
== END 2018-12-10 19:33 | disposition home or self-care (01) | DRG 155 ==
LOC: FTE 10:50 → TEL 15:09 → CANRESERV 16:13
PROVIDERS: ADMIT Internal Medicine; ATTEND Internal Medicine
DX: K11.21 Acute sialoadenitis (principal); L03.221 Cellulitis of neck; D68.59 Other primary thrombophilia; B37.0 Candidal stomatitis; I48.2 Chronic atrial fibrillation; E11.9 Type 2 diabetes mellitus without complications; K11.8 Other diseases of salivary glands; K11.5 Sialolithiasis; I10 Essential (primary) hypertension; J45.20 Mild intermittent asthma, uncomplicated; E89.0 Postprocedural hypothyroidism; Z79.01 Long term (current) use of anticoagulants; Z86.711 Personal history of pulmonary embolism; Z95.0 Presence of cardiac pacemaker
CPT/HCPCS: 36415; 70491; 80048; 80053; 80202; 81003; 82565; 82962; 83036; 84443; 84520; 85025; 85610; 85730; 87070; 94660; 96361; 96374; 96375; J1100; J1170; J2270; J2405; J2543; J3370; J7030; J7042; J7050; Q9967

== ENCOUNTER 2019-02-26 14:57 | Emergency (ER) | payer BC ==
[~2019-02-26] VITALS: Ht 157.5 cm; Wt 86.8 kg
[~2019-02-26 14:57] MED LIST changes: +CHOL200056 PO; +CYAN100T PO; -DILT120C77 PO; +DILT240C98 PO; +FER325 PO; +HYDR50TA3 PO; -IBUP-1542 PO; -LEVA15HF6 INH; -LEVO100T82 PO; +LEVO125T7 PO; -OXYC5CAP17 PO; +POTA10TA37 PO; -PRED20TA PO; -TRAM50TA2 PO; +WARF7.5T PO
[2019-02-26 15:05] VITALS: Ht 157.5 cm; Wt 86.8 kg
[2019-02-26] MEDS ORDERED: SOD CHLORIDE 0.9% 500 ML IV STA (17:12)
--- NOTE | 2019-02-26 18:34 | ERD ---
ER Documentation Chief Complaint Chief Complaint irregular heart rated started around 1315 HPI 63-year-old female presenting with palpitations that started around 1:15 PM today. She was walking quickly at the time when her symptoms started. She denies any recent illness, chest pain, shortness of breath, headache, dizziness, recent illness. Her only complaint is a rapid heartbeat. She has a pacemaker for uncontrolled A. fib and a flutter. Normally her heart rate is in the 60s. ROS All systems reviewed and are negative except as per history of present illness. Medications Home Meds Reported Medications Cyanocobalamin* (Vitamin B12*) Unknown Strength Tab, 1 TAB PO DAILY, TAB 02/26/19 Ferrous Sulfate* (Ferrous Sulfate*) 325 Mg Tabec, 325 MG PO DAILY, TAB 02/26/19 Cholecalciferol (Vitamin D3) (Vitamin D-3) 2,000 Unit Tablet, 4000 UNIT PO DAILY, TAB 02/26/19 Warfarin Sodium* (Coumadin*) 7.5 Mg Tablet, 7.5 MG PO DAILY, TAB Q MON,MON,Mon02/26/19 Hydrochlorothiazide* (Hydrochlorothiazide*) 50 Mg Tab, 50 MG PO DAILY, #30 TAB 12/04/18 Potassium Chloride* (K-Dur*) 10 Meq Tab.prt.sr, 10 MEQ PO BID, TAB 12/04/18 Diltiazem Hcl* (Diltiazem XT) 240 Mg Capsule.er, 240 MG PO BID, #30 CAP 12/04/18 Levothyroxine Sodium* (Levothyroxine Sodium*) 125 Mcg Tablet, 125 MCG PO BEFORE BREAKFAST, #30 TAB 12/04/18 Warfarin Sodium* (Coumadin*) 5 Mg Tablet, 5 MG PO Q TU,THUR,SAT,SUN, TAB 12/04/18 Discontinued Reported Medications Warfarin Sodium* (Coumadin*) 2 Mg Tablet, 7 MG PO Q MON,WED,FRI, TAB TAKE 2MG+5MG=7MG Q MON,WED,FRI 12/04/18 Discontinued Scripts Amoxicillin/Potassium Clav (Amox-Clav 875-125 mg Tablet) 875-125 mg Tab, 1 TAB PO BID, #20 TAB 0 Refills Prov:AYLEEN CROWLEY MD 12/10/18 Allergies Allergies: Coded Allergies: Pentazocine Lactate (Verified Allergy, Unknown, HALLUCINATIONS, 02/26/19) PMhx/Soc History of Surgery: Yes (PACEMAKER, IVC PLACEMENT, THYROIDECTOMY, HYSTERECTOMY) Anesthesia Reaction: No Hx Neurological Disorder: No Hx Respiratory Disorders: Yes (ASTHMA, PULMO HTN, PE) Hx Cardiac Disorders: Yes (HTN, PERICARDITIS, AFIB/AFLUTTER) Hx Psychiatric Problems: No Hx Miscellaneous Medical Probl: No Hx Alcohol Use: No Hx Substance Use: No Hx Tobacco Use: No Smoking Status: Never smoker FmHx Family History: No diabetes Physical Exam Vitals Vital Signs Date Temp Pulse Resp B/P (MAP) Pulse Ox O2 O2 Flow FiO2 Time Delivery Rate 02/26/19 98.0 84 18 124/79 96 Room Air 17:43 (94) 02/26/19 98.3 114 18 147/87 95 15:05 (107) Physical Exam Const: No acute distress, well-appearing, no diaphoresis Head: Atraumatic Eyes: Normal Conjunctiva ENT: Normal External Ears, Nose and Mouth. Neck: Full range of motion. No meningismus. Resp: Clear to auscultation bilaterally Cardio: Mildly tachycardic with regular. No murmurs. 2+ distal pulses in all 4 extremities rhythm Abd: Soft, non tender, non distended. Normal bowel sounds Skin: No petechiae or rashes Back: No midline or flank tenderness Ext: No cyanosis, or edema Neur: Awake and alert Psych: Normal Mood and Affect Result Diagram: 02/26/19 1737 02/26/19 1737 Results 24 hrs Laboratory Tests Test 02/26/19 17:37 White Blood Count 4.6 10^3/ul Red Blood Count 5.21 10^6/ul Hemoglobin 13.9 g/dl Hematocrit 44.1 % Mean Corpuscular Volume 84.6 fl Mean Corpuscular Hemoglobin 26.7 pg Mean Corpuscular Hemoglobin Concent 31.5 g/dl Red Cell Distribution Width 16.5 % Platelet Count 291 10^3/UL Mean Platelet Volume 9.9 fl Immature Granulocytes % 0.000 % Neutrophils % 62.3 % Lymphocytes % 26.8 % Monocytes % 9.6 % Eosinophils % 0.9 % Basophils % 0.4 % Nucleated Red Blood Cells % 0.0 /100WBC Immature Granulocytes # 0.000 10^3/ul Neutrophils # 2.8 10^3/ul Lymphocytes # 1.2 10^3/ul Monocytes # 0.4 10^3/ul Eosinophils # 0.0 10^3/ul Basophils # 0.0 10^3/ul Nucleated Red Blood Cells # 0.0 10^3/ul Prothrombin Time 21.3 Sec Prothrombin Time Ratio 1.7 INR International Normalized Ratio 1.84 Activated Partial Thromboplast Time 43.9 Sec Sodium Level 144 mmol/L Potassium Level 3.9 mmol/L Chloride Level 105 mmol/L Carbon Dioxide Level 30 mmol/L Anion Gap 9 Blood Urea Nitrogen 21 mg/dl Creatinine 0.89 mg/dl Est Glomerular Filtrat Rate mL/min > 60 mL/min Glucose Level 93 mg/dl Calcium Level 9.7 mg/dl Troponin I < 0.012 ng/ml Current Medications Medications Dose Sig/Rod Start Time Status Last (Trade) Ordered Route PRN Stop Time Admin Dose Reason Admin Sodium 500 ml @ Q1H STAT 02/26/19 DC 02/26/19 Chloride 500 mls/hr IV 17:12 18:14 02/26/19 18:11 Procedures/MDM EMERGENT LABS AND DIAGNOSTIC STUDIES: Lab Results above were reviewed and interpreted by me. CBC: no anemia or evidence of infection BMP: No e/o clinically significant electrolyte abnormality severe acidosis, alkalosis, renal failure, diabetic ketoacidosis Troponin within normal limits, not indicative of cardiac ischemia 12-lead EKG was interpreted by Yung Us MD: Sinus tachycardia at 113 bpm with nonspecific T wave abnormality Normal axis Normal intervals No acute ST or T wave changes suggestive of acute ischemia or STEMI. Repeat EKG: Rate/Rhythm: Ventricular paced rhythm at 65 bpm with also craig rhythm noted QRS, ST, T-waves: No evidence of acute ischemia Impression: No evidence of ischemia or arrhythmia Initial Nursing notes reviewed. Previous Medical Records requested via the Electronic Health Record. EMERGENCY DEPARTMENT COURSE / MEDICAL DECISION MAKING: Patient is presenting with palpitations but no associated chest pain. She was tachycardic on arrival but has no evidence of A. fib on EKG. Only sinus tachycardia. Initial troponin was negative. No significant electrolyte abnormalities on blood work. She was given a small bolus of IV fluids with improvement of her heart rate. Low suspicion for pulmonary embolism or sepsis. Patient is doing well and has no symptoms upon reevaluation. I feel she is stable for discharge with continued outpatient follow-up. Return precautions were discussed Patient's blood pressure was elevated (>120/80) but appears stable without evidence of hypertensive emergency or urgency. The patient was counseled about the risks of hypertension and urged to pursue outpatient monitoring and therapy within a week with their primary care physician. Departure Diagnosis: Primary Impression: Rapid palpitations Additional Impression: Sinus tachycardia Condition: Stable Patient Instructions: Palpitations Additional Instructions: Return to the ER if you are having any worsening symptoms. ROSMERY US MD Feb 26, 2019 18:34
[2019-02-26 19:54] VITALS: BP 109/87; PULSE 78; RESP 16
== END 2019-02-26 19:56 | disposition home or self-care (01) ==
LOC: E/R 14:57
DX: R00.2 Palpitations (principal); R00.0 Tachycardia, unspecified; J45.909 Unspecified asthma, uncomplicated; I10 Essential (primary) hypertension; Z79.01 Long term (current) use of anticoagulants
CPT/HCPCS: 80048; 84484; 85025; 85610; 85730; J7040; 36415; 93005

== ENCOUNTER → 2019-05-24 | Outpatient (CLI) | payer BC ==
[~2019-05-24] MED LIST changes: -AMOX1TAB10 PO; -CYAN100T PO; +CYAN100T35 PO; -WARF2TAB PO
== END | disposition home or self-care (01) ==
LOC: LAB 07:54
PROVIDERS: ATTEND Internal Medicine Cardiovascular Disease
DX: I48.92 Unspecified atrial flutter (principal)
CPT/HCPCS: 85610